=== PATIENT | female | born 1950 | race Caucasian/White ===

== ENCOUNTER 2019-08-14 09:37 | Inpatient (IN) ==
[2019-08-14] MEDS ORDERED: NS 1000 ML 1,000 ML ONE (13:02)
[2019-08-14] MEDS: NS 1000 ML 1,000 ML IV SCH (13:22)
[2019-08-14 13:23] LABS: BASOPHILS # (AUTO) 0.1 X10^3/uL (0.0-0.1); BASOPHILS % (AUTO) 1.1 % (0.2-1.0); EOSINOPHILS # (AUTO) 0.2 x10^3/uL (0.0-0.2); EOSINOPHILS % (AUTO) 2.5 % (0.9-2.9); HEMOGLOBIN 11.9 g/dL (12.0-16.0); LYMPHOCYTES # (AUTO) 1.3 X10^3/uL (1.3-2.9); LYMPHOCYTES % (AUTO) 20.4 % (21.0-51.0); MEAN CORPUSCULAR HEMOGLOBIN 29.8 pg (27.0-34.0); MEAN CORPUSCULAR VOLUME 90.2 fL (80.0-100.0); MEAN PLATELET VOLUME 8.2 fL (7.4-11.0); MONOCYTES # (AUTO) 0.9 x10^3/uL (0.3-0.8); PLATELET COUNT 250 X10^3/uL (150.0-450.0); RED BLOOD COUNT 3.99 X10^6/uL (3.5-5.4); RED CELL DISTRIBUTION WIDTH 13.2 % (11.6-16.5); WHITE BLOOD COUNT 6.4 X10^3/uL (3.6-10.0)
[2019-08-14 13:34] LABS: ALANINE AMINOTRANSFERASE 39 Units/L (12-78); ALBUMIN 3.4 g/dL (3.4-5.0); ALKALINE PHOSPHATASE 51 Units/L (46-116); ASPARTATE AMINO TRANSFERASE 23 Units/L (15-37); BLOOD UREA NITROGEN 7 mg/dL (7-18); CHLORIDE 93 mmol/L (98-107); COR NA(FOR HYPERGLY) 135 mmol/L (136-145); CREATININE 0.48 mg/dL (0.55-1.02); SODIUM 134 mmol/L (136-145); TOTAL PROTEIN 6.9 g/dL (6.4-8.2); eGFR NON BLACK RACES > 60 (>60)
[2019-08-14 13:38] LABS: CARBON DIOXIDE 44.9 mmol/L (21-32)
--- NOTE | 2019-08-14 13:40 | RAD ---
HISTORYACUTE SOBSTUDYCHEST, 1 VIEWCOMPARISONNoneFINDINGSThe trachea is midline. The cardiac silhouette is unremarkable. Calcification of the aortic arch.Lungs are hyperinflated likely due to COPD. No evidence of pneumonia no pneumothorax or pleural effusion is seen. Lung apices are excluded.No acute bony abnormality is seen.IMPRESSIONProbable COPD changes.Electronically signed by: Aric Archibald (Aug 14, 2019 13:38:44)
[2019-08-14 13:43] VITALS: BMI 18.5
[2019-08-14 14:08] LABS: BILIRUBIN,URINE NEGATIVE (NEGATIVE); BLOOD/HEMOGLOBIN,URINE NEGATIVE (NEGATIVE); GLUCOSE, URINE NEGATIVE (NEGATIVE); KETONES,URINE NEGATIVE (NEGATIVE); LEUKOCYTE ESTERASE ,URINE NEGATIVE (NEGATIVE); NITRITES,URINE NEGATIVE (NEGATIVE); PROTEIN,URINE NEGATIVE (NEGATIVE); UROBILINOGEN,URINE NORMAL (NORMAL)
[2019-08-14 14:13] LABS: APPEARANCE,URINE CLEAR (CLEAR); COLOR,URINE YELLOW (YELLOW)
[2019-08-14 20:46] LABS: ABG BASE EXCESS 16.3 mmol/L (-2.0-2.0)
[2019-08-14 20:54] LABS: ABG ALLEN TEST P; ABG HCO3 45.8 mmol/L (22-26)
[2019-08-14] MEDS ORDERED: PROVENTIL NEB TX 0.083% 2.5MG/ 3ML NEB SCH (21:00)
[2019-08-14] MEDS: PULMICORT NEB TX 0.5 MG NEB SCH (21:10)
[2019-08-14] MEDS ORDERED: ATIVAN TAB 0.5 MG ONE (21:22)
[2019-08-14] MEDS: ATIVAN TAB 0.5 MG PO PRN (21:28)
[2019-08-15] MEDS: NS 1000 ML 1,000 ML IV SCH ×2 (03:22→15:21)
[2019-08-15 06:57] LABS: BASOPHILS # (AUTO) 0.1 X10^3/uL (0.0-0.1); EOSINOPHILS # (AUTO) 0.1 x10^3/uL (0.0-0.2); EOSINOPHILS % (AUTO) 2.3 % (0.9-2.9); HEMOGLOBIN 10.1 g/dL (12.0-16.0); LYMPHOCYTES # (AUTO) 1.4 X10^3/uL (1.3-2.9); MEAN CORPUSCULAR HEMOGLOBIN 29.6 pg (27.0-34.0); MEAN CORPUSCULAR HGB CONC 32.5 g/dL (33.0-35.0); MEAN PLATELET VOLUME 8.7 fL (7.4-11.0); MONOCYTES # (AUTO) 0.7 x10^3/uL (0.3-0.8); MONOCYTES % (AUTO) 13.6 % (0.0-13.0); NEUTROPHILS # (AUTO) 2.8 x10^3/uL (2.2-4.8); NEUTROPHILS % (AUTO) 55.1 % (42.0-75.0); PLATELET COUNT 182 X10^3/uL (150.0-450.0); RED BLOOD COUNT 3.41 X10^6/uL (3.5-5.4); RED CELL DISTRIBUTION WIDTH 13.4 % (11.6-16.5); WHITE BLOOD COUNT 5.1 X10^3/uL (3.6-10.0)
[2019-08-15 07:19] LABS: ALANINE AMINOTRANSFERASE 33 Units/L (12-78); ALBUMIN 2.8 g/dL (3.4-5.0); ALKALINE PHOSPHATASE 38 Units/L (46-116); ASPARTATE AMINO TRANSFERASE 16 Units/L (15-37); BLOOD UREA NITROGEN 3 mg/dL (7-18); CALCIUM 7.9 mg/dL (8.5-10.1); CHLORIDE 100 mmol/L (98-107); COR CA(FOR HYPOALB) 8.9 mg/dL (8.5-10.1); CREATININE 0.38 mg/dL (0.55-1.02); SODIUM 140 mmol/L (136-145); TOTAL PROTEIN 5.6 g/dL (6.4-8.2); eGFR NON BLACK RACES > 60 (>60)
[2019-08-15 07:27] LABS: CARBON DIOXIDE 40.7 mmol/L (21-32)
[2019-08-15] MEDS ORDERED: ATIVAN TAB 0.5 MG PO PRN (08:36)
[2019-08-15] MEDS ORDERED: TYLENOL 500 MG TAB EXTRA STRENGTH PO PRN (08:36)
[2019-08-15 09:21] LABS: ABG BASE EXCESS 18.3 mmol/L (-2.0-2.0)
[2019-08-15 09:22] LABS: ABG ALLEN TEST POS
[2019-08-15] MEDS: PULMICORT NEB TX 0.5 MG NEB SCH ×2 (09:26→20:02)
[2019-08-15] MEDS: TAB-A-VITE PO SCH ×2 (10:03→10:06)
[2019-08-15] MEDS: SOLU-Medrol 40 MG VIAL IVP SCH ×3 (10:03→21:30)
[2019-08-15] MEDS: LOPRESSOR TAB 25 MG PO SCH ×2 (10:03→20:47)
[2019-08-15] MEDS: OSCAL+D or CALTRATE+D PO SCH (10:03)
[2019-08-15] MEDS: LOVENOX INJ 40 MG SYR SC SCH (10:05)
[2019-08-15] MEDS: FORTAZ or TAZICEF VIAL INJ 1 G in NS 100 ML IV + SPIKE MINIBAG* 100 ML IV SCH ×3 (10:06→21:35)
--- NOTE | 2019-08-15 10:32 | DR.H&P ---
H&P - History & Physical for Day of: H&P Date: 08/14/19 - Chief Complaint Chief Complaint: WEAKNESS, AMS, SOB, COUGH - History of Present Illness History of Present Illness: IS A 69 YEAR OLD PATIENT OF OURS WHO PRESENTED TO THE ER WITH COMPLAINTS OF DEHYDRATION, WEAKNESS, AMS, SHORTNESS OF BREATH, AND COUGH. SYMPTOMS STARTED APPROXIMATELY A WEEK AGO. SHE HAS BEEN TAKING LEVAQUIN 500MG PO DAILY AND RESPIRATORY TREATMENTS AT HOME WITHOUT IMPROVEMENT IN SYMPTOMS. SHE DOES HAVE A PMH OF COPD AND EMPHYSEMA. ON ARRIVAL, VITALS WERE 98.5-86-20-99%-128/58. LABS WERE OBTAINED. ABNORMAL LAB VALUES INCLUDE THE FOLLOWING: HGB 11.9, SODIUM 134, CHLORIDE 93, CARBON DIOXIDE 44.9, CREATININE 0.48, GLUCOSE 127, TOTAL BILI 0.10. A URINALYSIS REVEALED: PH 7.350, PC02 83.0, P02 113.0, HC03 45.8, 02 SATURATION 98.0, BASE EXCESS 16.3. URINALY SIS IS UNREMARKABLE. A CHEST XRAY WAS OBTAINED AND REVEALED: PROBABLE COPD CHANGES. SHE WAS STARTED ON NORMAL SALINE AT 80 ML/HR, IV FORTAZ, IV LEVAQUIN, SOLU-MEDROL 80MG IV Q8H, LOVENOX 40MG SC DAILY, AND RESPIRATORY TREATMENTS. OTHERWISE, WE PLAN TO FOLLOW UP WITH AM LABS AND CONTINUE TO MONITOR. - Past Medical History Past Medical History: COPD, Dyslipidemia, Hypertension - Past Surgical History Surgical History: Appendectomy, Tonsillectomy - Family History Family Medical History: PA, Hypertension - Social History Does patient currently use any type of tobacco product: No (quit 3 yrs. ago) Have you used tobacco products in the last 12 months: No Type of Tobacco Use: None How many years tobacco product used: 30 Alcohol Use: None Drug Use: None - Medications Home Medications: aspirin Allergy (Verified 04/27/18 11:47) sulfamethoxazole [From Bactrim] Allergy (Verified 04/27/18 11:47) trimethoprim [From Bactrim] Allergy (Verified 04/27/18 11:47) - Review of Systems Constitutional: Weakness Eyes: No Symptoms Reported ENT: No Symptoms Reported Respiratory: See HPI, Cough, Shortness of Breath, SOB with Excertion, Wheezing Cardiovascular: No Symptoms Reported Gastrointestinal: No Symptoms Reported Genitourinary: No Symptoms Reported Musculoskeletal: No Symptoms Reported Neurological: Weakness - Physical Exam Vital Signs: Temperature 98.1 F Pulse Rate [Right Brachial] 93 Pulse Rate 106 Respiratory Rate 20 Blood Pressure [Right Arm] 149/66 O2 Sat by Pulse Oximetry 98 Oriented: Normal Eyes: Normal Ear: Normal Nose: Normal Throat: Normal Respiratory: Wheezes Throughout Cardiovascular: Normal. negative: S3, S4, Murmur : Normal Auscultation: Bowel Sounds: Normal Palpation: Normal Tenderness: Diffuse Skin: Normal Musculoskeletal: Normal Psychiatric: Normal Mood Description: Calm Affect: Normal Speech Pattern: Clear - Assessment/Plan (1) COPD exacerbation Status: Acute Plan: ADMIT, IV FLUIDS, IV LEVAQUIN, IV FORTAZ, SOLU-MEDROL, RESPIRATORY TREATMENTS, CONTINUE TO MONITOR. (2) Acute bronchitis Qualifiers: Bronchitis organism: unspecified organism Qualified Code(s): J20.9 - Acute bronchitis, unspecified Status: Acute (3) Altered mental status Qualifiers: Altered mental status type: transient alteration of awareness Qualified Code(s): R40.4 - Transient alteration of awareness Status: Acute - Allergies Allergies/Adverse Reactions: Allergies Allergy/AdvReac Type Severity Reaction Status Date / Time aspirin Allergy Verified 04/27/18 11:47 sulfamethoxazole Allergy Verified 04/27/18 11:47 [From Bactrim] trimethoprim [From Bactrim] Allergy Verified 04/27/18 11:47
[2019-08-15] MEDS: PROVENTIL NEB TX 0.083% 2.5MG/ 3ML NEB PRN ×2 (11:07→20:02)
[2019-08-15] MEDS: LEVAQUIN PREMIX IV 750 MG 750 MG/150 ML BAG IV SCH (11:23)
[2019-08-15] MEDS ORDERED: TUMS PO PRN (14:00)
[2019-08-15] MEDS: ATIVAN TAB 0.5 MG PO PRN (14:11)
[2019-08-15] MEDS: NORVASC TAB 5 MG PO SCH (20:47)
[2019-08-15] MEDS: ZOCOR TAB 20 MG PO SCH (20:47)
[2019-08-16] MEDS: ATIVAN TAB 0.5 MG PO PRN ×2 (01:30→14:22)
[2019-08-16] MEDS: NS 1000 ML 1,000 ML IV SCH ×2 (06:08→19:13)
[2019-08-16] MEDS: FORTAZ or TAZICEF VIAL INJ 1 G in NS 100 ML IV + SPIKE MINIBAG* 100 ML IV SCH ×3 (06:08→21:38)
[2019-08-16] MEDS: SOLU-Medrol 40 MG VIAL IVP SCH ×3 (06:09→21:38)
[2019-08-16 06:26] LABS: BASOPHILS % (AUTO) 0.1 % (0.2-1.0); HEMATOCRIT 34.2 % (36.0-47.0); HEMOGLOBIN 11.1 g/dL (12.0-16.0); LYMPHOCYTES # (AUTO) 0.5 X10^3/uL (1.3-2.9); LYMPHOCYTES % (AUTO) 10.5 % (21.0-51.0); MEAN CORPUSCULAR HEMOGLOBIN 29.4 pg (27.0-34.0); MEAN CORPUSCULAR HGB CONC 32.4 g/dL (33.0-35.0); MEAN CORPUSCULAR VOLUME 90.5 fL (80.0-100.0); MEAN PLATELET VOLUME 8.4 fL (7.4-11.0); MONOCYTES # (AUTO) 0.3 x10^3/uL (0.3-0.8); MONOCYTES % (AUTO) 5.6 % (0.0-13.0); NEUTROPHILS # (AUTO) 4.2 x10^3/uL (2.2-4.8); NEUTROPHILS % (AUTO) 83.8 % (42.0-75.0); PLATELET COUNT 247 X10^3/uL (150.0-450.0); RED BLOOD COUNT 3.77 X10^6/uL (3.5-5.4); RED CELL DISTRIBUTION WIDTH 13.4 % (11.6-16.5)
[2019-08-16 06:39] LABS: ALANINE AMINOTRANSFERASE 32 Units/L (12-78); ALKALINE PHOSPHATASE 42 Units/L (46-116); ASPARTATE AMINO TRANSFERASE 20 Units/L (15-37); BLOOD UREA NITROGEN 7 mg/dL (7-18); CALCIUM 8.6 mg/dL (8.5-10.1); CHLORIDE 99 mmol/L (98-107); COR CA(FOR HYPOALB) 9.4 mg/dL (8.5-10.1); COR NA(FOR HYPERGLY) 138 mmol/L (136-145); CREATININE 0.41 mg/dL (0.55-1.02); SODIUM 137 mmol/L (136-145); TOTAL PROTEIN 6.3 g/dL (6.4-8.2); eGFR NON BLACK RACES > 60 (>60)
[2019-08-16 06:48] LABS: CARBON DIOXIDE 40.3 mmol/L (21-32)
--- NOTE | 2019-08-16 07:06 | RAD ---
HISTORYSOB, COPDSTUDYAP [id number]/2020FINDINGSContinued normal heart size with symmetric pulmonary hyperexpansion and no evidence for acute infiltrate, edema, pleural fluid or pneumothorax.IMPRESSIONNo interval russo ge or developing acute abnormality since 08/14/2019.Electronically signed by: CHELSEY JONES (Aug 16, 2019 07:05:39)
[2019-08-16] MEDS: PULMICORT NEB TX 0.5 MG NEB SCH ×2 (08:21→20:08)
[2019-08-16] MEDS: PROVENTIL NEB TX 0.083% 2.5MG/ 3ML NEB PRN ×3 (08:21→20:08)
[2019-08-16] MEDS: LEVAQUIN PREMIX IV 750 MG 750 MG/150 ML BAG IV SCH (09:15)
[2019-08-16] MEDS: LOPRESSOR TAB 25 MG PO SCH ×2 (09:15→21:36)
[2019-08-16] MEDS: LOVENOX INJ 40 MG SYR SC SCH (09:16)
[2019-08-16] MEDS: OSCAL+D or CALTRATE+D PO SCH (09:16)
[2019-08-16] MEDS: TAB-A-VITE PO SCH (09:16)
[2019-08-16] MEDS: ZOCOR TAB 20 MG PO SCH (21:37)
[2019-08-16] MEDS: NORVASC TAB 5 MG PO SCH (21:37)
[2019-08-17] MEDS: FORTAZ or TAZICEF VIAL INJ 1 G in NS 100 ML IV + SPIKE MINIBAG* 100 ML IV SCH ×3 (05:50→21:00)
[2019-08-17] MEDS: SOLU-Medrol 40 MG VIAL IVP SCH ×3 (05:51→21:00)
[2019-08-17 06:09] LABS: BASOPHILS % (AUTO) 0.1 % (0.2-1.0); HEMATOCRIT 35.1 % (36.0-47.0); HEMOGLOBIN 11.5 g/dL (12.0-16.0); LYMPHOCYTES # (AUTO) 0.6 X10^3/uL (1.3-2.9); LYMPHOCYTES % (AUTO) 6.3 % (21.0-51.0); MEAN CORPUSCULAR HGB CONC 32.8 g/dL (33.0-35.0); MEAN CORPUSCULAR VOLUME 91.4 fL (80.0-100.0); MEAN PLATELET VOLUME 9.1 fL (7.4-11.0); MONOCYTES # (AUTO) 0.5 x10^3/uL (0.3-0.8); MONOCYTES % (AUTO) 4.6 % (0.0-13.0); PLATELET COUNT 267 X10^3/uL (150.0-450.0); RED BLOOD COUNT 3.84 X10^6/uL (3.5-5.4); RED CELL DISTRIBUTION WIDTH 13.9 % (11.6-16.5); WHITE BLOOD COUNT 10.1 X10^3/uL (3.6-10.0)
[2019-08-17 06:29] LABS: ALANINE AMINOTRANSFERASE 32 Units/L (12-78); ALBUMIN 3.3 g/dL (3.4-5.0); ALKALINE PHOSPHATASE 44 Units/L (46-116); ASPARTATE AMINO TRANSFERASE 18 Units/L (15-37); BLOOD UREA NITROGEN 6 mg/dL (7-18); CALCIUM 8.7 mg/dL (8.5-10.1); CARBON DIOXIDE 39.4 mmol/L (21-32); CHLORIDE 98 mmol/L (98-107); COR CA(FOR HYPOALB) 9.3 mg/dL (8.5-10.1); COR NA(FOR HYPERGLY) 139 mmol/L (136-145); CREATININE 0.42 mg/dL (0.55-1.02); SODIUM 138 mmol/L (136-145); TOTAL PROTEIN 6.6 g/dL (6.4-8.2); eGFR NON BLACK RACES > 60 (>60)
--- NOTE | 2019-08-17 08:07 | RAD ---
HISTORYshort of breathSTUDYCHEST, 1 VIEWCOMPARISONFebruary 2019 and April 27, 2018FINDINGSAortic atherosclerosis is noted. There is a background of emphysema/COPD. The patient is slightly rotated, but there appears to be a slightly convex contour of the AP window for which an underlying mass or lymphadenopathy is not entirely excluded. CT chest with contrast is recommended if the patient's renal function allows. The cardiac silhouette is unremarkable . The lungs are clear without focal mass or consolidation. There is no effusion or pneumothorax. Biapical pleural thickening is noted. The bony thorax is unremarkable.IMPRESSIONNo acute cardiopulmonary disease. Background of emphysema/COPD with equivocal convex contour of the left AP window. CT chest with contrast is recommended when clinically feasible and if the patient's renal function allows.Electronically signed by: NUSRAT GARCIA (Aug 17, 2019 08:06:47)
[2019-08-17] MEDS: PROVENTIL NEB TX 0.083% 2.5MG/ 3ML NEB PRN ×3 (08:38→21:14)
[2019-08-17] MEDS: PULMICORT NEB TX 0.5 MG NEB SCH ×2 (08:38→21:14)
[2019-08-17] MEDS: LEVAQUIN PREMIX IV 750 MG 750 MG/150 ML BAG IV SCH (09:27)
[2019-08-17] MEDS: TAB-A-VITE PO SCH (09:27)
[2019-08-17] MEDS: ATIVAN TAB 0.5 MG PO PRN ×2 (09:27→20:38)
[2019-08-17] MEDS: OSCAL+D or CALTRATE+D PO SCH (09:27)
[2019-08-17] MEDS: LOPRESSOR TAB 25 MG PO SCH ×2 (09:27→20:37)
--- NOTE | 2019-08-17 11:32 | PCM.PROG ---
Progress Note Progress Note for Day of Date of Exam: 08/17/19 Subjective Subjective: Pt is a 69 yo f pmhx COPD admitted for COPD exacerbation, dehydration, weakness. She is sitting up in bed, states she has been coughing up white sputum, no other concerns. She is on Levaquin, Fortaz, Solumedrol. CXR today showed No acute cardiopulmonary disease. Background of emphysema/COPD with equivocal convex contour of the left AP window. CT chest with contrast is recommended when clinically feasible and if the patient's renal function allows. Will order CT today, IS, and Mucinex. C ontinue to monitor and follow labs in morning. Past Medical Family Social History Past Med/Fam/Surg Hx: No changes since H&P Allergies: Allergies aspirin Allergy (Verified 04/27/18 11:47) sulfamethoxazole [From Bactrim] Allergy (Verified 04/27/18 11:47) trimethoprim [From Bactrim] Allergy (Verified 04/27/18 11:47) Review of Systems ROS: No change since H&P Vital Signs and I&O's Vital Signs: Temperature 97.8 F Pulse Rate [Right Brachial] 85 Pulse Rate 98 Respiratory Rate 22 Blood Pressure [Right Arm] 127/60 O2 Sat by Pulse Oximetry 96 Intake and Output: Intake & Output 08/14/19 08/15/19 08/16/19 08/17/19 23:59 23:59 23:59 23:59 Intake Total 2280 / 2280 1540 / 1540 3110 / 3110 810 / 810 Output Total 1200 / 1200 Balance 2280 / 2280 340 / 340 3110 / 3110 810 / 810 Physical Exam Oriented: Normal Eyes: Normal Ear: Normal Nose: Normal Throat: Normal Respiratory: Diminished and Wheezes Cardiovascular: Normal; negative S3, S4 and Murmur : Normal Auscultation: Bowel Sounds: Normal Tenderness: Diffuse Skin: Normal Musculoskeletal: Normal Psychiatric: Normal Mood Description: Calm Affect: Normal Speech Pattern: Clear and Appropriate Laboratory and Diagnostics Result Diagrams: 08/17/19 05:05 08/17/19 05:05 Labs: 08/15/19 23:04 Sputum - Expectorated Sputum Sputum Culture - Preliminary 08/15/19 23:04 Sputum - Expectorated Sputum - Final 08/14/19 13:00 Urine,Clean Catch Urine Culture - Final Laboratory WBC 10.1 X10^3/uL (3.6-10.0) H 08/17/19 05:05 RBC 3.84 X10^6/uL (3.5-5.4) 08/17/19 05:05 Hgb 11.5 g/dL (12.0-16.0) L 08/17/19 05:05 Hct 35.1 % (36.0-47.0) L 08/17/19 05:05 MCV 91.4 fL (80.0-100.0) 08/17/19 05:05 MCH 30.0 pg (27.0-34.0) 08/17/19 05:05 MCHC 32.8 g/dL (33.0-35.0) L 08/17/19 05:05 RDW 13.9 % (11.6-16.5) 08/17/19 05:05 Plt Count 267 X10^3/uL (150.0-450.0) 08/17/19 05:05 MPV 9.1 fL (7.4-11.0) 08/17/19 05:05 Neut % (Auto) 89.0 % (42.0-75.0) H 08/17/19 05:05 Lymph % (Auto) 6.3 % (21.0-51.0) L 08/17/19 05:05 [place] % (Auto) 4.6 % (0.0-13.0) 08/17/19 05:05 Eos % (Auto) 0.0 % (0.9-2.9) L 08/17/19 05:05 Baso % (Auto) 0.1 % (0.2-1.0) L 08/17/19 05:05 Neut # (Auto) 9.0 x10^3/uL (2.2-4.8) H 08/17/19 05:05 Lymph # (Auto) 0.6 X10^3/uL (1.3-2.9) L 08/17/19 05:05 [place] # (Auto) 0.5 x10^3/uL (0.3-0.8) 08/17/19 05:05 Eos # (Auto) 0.0 x10^3/uL (0.0-0.2) 08/17/19 05:05 Baso # (Auto) 0.0 X10^3/uL (0.0-0.1) 08/17/19 05:05 Absolute Nucleated RBC 0.0 /100WBC 08/17/19 05:05 Sample Site Rr 08/15/19 09:16 ABG pH 7.360 (7.35-7.45) 08/15/19 09:16 ABG pCO2 85.0 mmHg (35.0-45.0) H* 08/15/19 09:16 ABG pO2 97.0 mmHg (80.0-100.0) 08/15/19 09:16 ABG HCO3 48.0 mmol/L (22-26) H* 08/15/19 09:16 ABG O2 Saturation 97.0 % (90-100) 08/15/19 09:16 ABG Base Excess 18.3 mmol/L (-2.0-2.0) H 08/15/19 09:16 Mayo Test Pos 08/15/19 09:16 A-a Gradient -4.0 mmHg 08/15/19 09:16 FiO2 28.0 08/15/19 09:16 Blood Gas Comments Miles well cb 08/15/19 09:16 Sodium 138 mmol/L (136-145) 08/17/19 05:05 Corrected Sodium 139 mmol/L (136-145) 08/17/19 05:05 Potassium 4.0 mmol/L (3.5-5.1) 08/17/19 05:05 Chloride 98 mmol/L (98-107) 08/17/19 05:05 Carbon Dioxide 39.4 mmol/L (21-32) H 08/17/19 05:05 BUN 6 mg/dL (7-18) L 08/17/19 05:05 Creatinine 0.42 mg/dL (0.55-1.02) L 08/17/19 05:05 Est GFR (MDRD) Af Amer > 60 (>60) 08/17/19 05:05 Est GFR (MDRD) Non-Af > 60 (>60) 08/17/19 05:05 Glucose 160 mg/dL (65-99) H 08/17/19 05:05 Calcium 8.7 mg/dL (8.5-10.1) 08/17/19 05:05 Corrected Calcium 9.3 mg/dL (8.5-10.1) 08/17/19 05:05 Total Bilirubin 0.10 mg/dL (0.2-1.0) L 08/17/19 05:05 AST 18 Units/L (15-37) 08/17/19 05:05 ALT 32 Units/L (12-78) 08/17/19 05:05 Alkaline Phosphatase 44 Units/L (46-116) L 08/17/19 05:05 Total Protein 6.6 g/dL (6.4-8.2) 08/17/19 05:05 Albumin 3.3 g/dL (3.4-5.0) L 08/17/19 05:05 Globulin 3.3 g/dL (2.5-4.5) 08/17/19 05:05 Albumin/Globulin Ratio 1.0 Ratio (1.1-2.1) L 08/17/19 05:05 Specimen Type Clean catch urine 08/14/19 13:00 Urine Color Yellow (YELLOW) 08/14/19 13:00 Urine Appearance Clear (CLEAR) 08/14/19 13:00 Urine pH 7.0 (5.0 - 8.0) 08/14/19 13:00 Ur Specific [place] 1.010 (1.000-1.030) 08/14/19 13:00 Urine Protein Negative (NEGATIVE) 08/14/19 13:00 Urine Glucose (UA) Negative (NEGATIVE) 08/14/19 13:00 Urine Ketones Negative (NEGATIVE) 08/14/19 13:00 Urine Occult Blood Negative (NEGATIVE) 08/14/19 13:00 Urine Nitrite Negative (NEGATIVE) 08/14/19 13:00 Urine Bilirubin Negative (NEGATIVE) 08/14/19 13:00 Urine Urobilinogen Normal (NORMAL) 08/14/19 13:00 Ur Leukocyte Esterase Negative (NEGATIVE) 08/14/19 13:00 Plan (1) COPD exacerbation: Status: Acute Plan: IV FLUIDS, IV LEVAQUIN, IV FORTAZ, SOLU-MEDROL, RESPIRATORY TREATMENTS, CONTINUE TO MONITOR. (2) Acute bronchitis: Status: Acute Qualifiers: Bronchitis organism: unspecified organism Qualified Code(s): J20.9 - Acute bronchitis, unspecified (3) Altered mental status: Status: Acute Qualifiers: Altered mental status type: transient alteration of awareness Qualified Code(s): R40.4 - Transient alteration of awareness
[2019-08-17] MEDS: MUCINEX EXPECTORANT PO SCH ×2 (14:35→20:38)
[2019-08-17] MEDS: LOVENOX INJ 40 MG SYR SC SCH (14:36)
[2019-08-17] MEDS: NS 1000 ML 1,000 ML IV SCH ×2 (14:42→19:54)
--- NOTE | 2019-08-17 19:40 | CT ---
CHEST WITH CONIndication: Rule out lymphadenopathy or underlying massTechnique: Helical CT images of the chest were obtained with IV contrast. Reformatted images in the coronal and sagittal planes were also generated for review.Comparison: NoneFindings: Heart is normal in size without pericardial effusion. Mild coronary atherosclerotic disease noted. The thoracic aorta and proximal great vessels are mildly calcified without aneurysm. Although not optimized for detection of PTE, no central or large segmental pulmonary arterial filling defects are identified. Central airways are patent. There is no mediastinal or hilar lymphadenopathy.Evaluation of the lungs demonstrate advanced centrilobular emphysema. No focal consolidation or suspicious pulmonary nodule/mass is identified. No pleural effusion or pneumothorax.Limited images through the upper abdomen demonstrates no acute abnormality. No adrenal lesions are seen. No acute osseous abnormality.Impression:Advanced emphysema.Otherwise, no acute cardiopulmonary abnormality, suspicious pulmonary nodule/mass or intrathoracic lymphadenopathy.Recommend annual screening with LDCT.Electronically signed by: YANE NGUYEN (Aug 17, 2019 19:39:26)
[2019-08-17] MEDS: ZOCOR TAB 20 MG PO SCH (20:38)
[2019-08-17] MEDS: NORVASC TAB 5 MG PO SCH (20:39)
[2019-08-18] MEDS: FORTAZ or TAZICEF VIAL INJ 1 G in NS 100 ML IV + SPIKE MINIBAG* 100 ML IV SCH ×4 (05:20→21:10)
[2019-08-18] MEDS: NS 1000 ML 1,000 ML IV SCH ×3 (05:20→21:14)
[2019-08-18] MEDS: SOLU-Medrol 40 MG VIAL IVP SCH (05:20)
[2019-08-18 06:15] LABS: BASOPHILS % (AUTO) 0 % (0.2-1.0); HEMATOCRIT 34.5 % (36.0-47.0); HEMOGLOBIN 11.2 g/dL (12.0-16.0); LYMPHOCYTES # (AUTO) 0.4 X10^3/uL (1.3-2.9); LYMPHOCYTES % (AUTO) 5.5 % (21.0-51.0); MEAN CORPUSCULAR HEMOGLOBIN 29.5 pg (27.0-34.0); MEAN CORPUSCULAR HGB CONC 32.4 g/dL (33.0-35.0); MEAN CORPUSCULAR VOLUME 91.1 fL (80.0-100.0); MEAN PLATELET VOLUME 8.6 fL (7.4-11.0); MONOCYTES # (AUTO) 0.3 x10^3/uL (0.3-0.8); MONOCYTES % (AUTO) 4.1 % (0.0-13.0); NEUTROPHILS # (AUTO) 6.9 x10^3/uL (2.2-4.8); NEUTROPHILS % (AUTO) 90.4 % (42.0-75.0); PLATELET COUNT 246 X10^3/uL (150.0-450.0); RED BLOOD COUNT 3.79 X10^6/uL (3.5-5.4); RED CELL DISTRIBUTION WIDTH 13.9 % (11.6-16.5); WHITE BLOOD COUNT 7.6 X10^3/uL (3.6-10.0)
[2019-08-18 06:28] LABS: ALANINE AMINOTRANSFERASE 36 Units/L (12-78); ALBUMIN 2.9 g/dL (3.4-5.0); ALKALINE PHOSPHATASE 39 Units/L (46-116); ASPARTATE AMINO TRANSFERASE 19 Units/L (15-37); BLOOD UREA NITROGEN 7 mg/dL (7-18); CALCIUM 8.7 mg/dL (8.5-10.1); CHLORIDE 99 mmol/L (98-107); COR CA(FOR HYPOALB) 9.6 mg/dL (8.5-10.1); COR NA(FOR HYPERGLY) 142 mmol/L (136-145); CREATININE 0.43 mg/dL (0.55-1.02); SODIUM 141 mmol/L (136-145); TOTAL PROTEIN 5.9 g/dL (6.4-8.2); eGFR NON BLACK RACES > 60 (>60)
[2019-08-18 06:59] LABS: CARBON DIOXIDE 44.2 mmol/L (21-32)
--- NOTE | 2019-08-18 07:01 | RAD ---
HISTORYsobSTUDYUpright portable AP chestCOMPARISONYesterday August 17, 2019FINDINGSThe lungs remain hyperinflated and grossly clear. The heart and mediastinum are unremarkable. There is no edema or effusion or bony abnormality demonstrated.IMPRESSIONUnchanged COPDElectronically signed by: DANGELO TAYLOR (Aug 18, 2019 07:00:35)
[2019-08-18 07:16] LABS: PLATELET MORPHOLOGY COMMENT NORMAL (NORMAL)
[2019-08-18 07:33] LABS: ABG BASE EXCESS 20.8 mmol/L (-2.0-2.0)
[2019-08-18 07:35] LABS: ABG HCO3 51.3 mmol/L (22-26)
[2019-08-18] MEDS: TAB-A-VITE PO SCH (08:40)
[2019-08-18] MEDS: LEVAQUIN PREMIX IV 750 MG 750 MG/150 ML BAG IV SCH (08:40)
[2019-08-18] MEDS: MUCINEX EXPECTORANT PO SCH ×2 (08:40→21:10)
[2019-08-18] MEDS: LOPRESSOR TAB 25 MG PO SCH ×2 (08:40→21:11)
[2019-08-18] MEDS: ATIVAN TAB 0.5 MG PO PRN ×2 (08:40→21:10)
[2019-08-18] MEDS: LOVENOX INJ 40 MG SYR SC SCH (08:41)
[2019-08-18] MEDS: OSCAL+D or CALTRATE+D PO SCH (08:41)
[2019-08-18] MEDS: PULMICORT NEB TX 0.5 MG NEB SCH ×2 (08:59→20:35)
[2019-08-18] MEDS: PROVENTIL NEB TX 0.083% 2.5MG/ 3ML NEB PRN ×3 (08:59→20:35)
[2019-08-18] MEDS: THEO-DUR TAB 200 MG PO SCH ×2 (12:10→21:10)
--- NOTE | 2019-08-18 18:45 | PCM.PROG ---
Progress Note - Progress Note for Day of Date of Exam: 08/16/19 - Subjective Subjective: WAS ADMITTED FOR COPD EXACERBATION, ACUTE BRONCHITIS, AND AMS. TODAY, SHE IS ALERT AND ORIENTED, LYING IN BED ON MORNING ROUNDS. SHE CONTINUES WITH COUGH AND SHORTNESS OF BREATH TODAY. ON EXAMINATION, HEART IS REGULAR IN RATE AND RHYTHM. BILATERAL LUNGS ARE NOTED WITH SCATTERED WHEEZING THROUGHOUT. ABDOMEN IS ROUND, SOFT, AND NON-TENDER WITH NORMAL BOWEL SOUNDS IN ALL QUADRANTS. HER VITALS THIS MORNING ARE: 98.3-93-22-99%-143/63. LABS WERE OBTAINED. ABNORMAL LAB VALUES INCLUDE THE FOLLOWING: HGB 11.1, HCT 34.2, CARBON DIOXIDE 40.3, CREATININE 0.41, GLUCOSE 144, ALK PHOS 42, TOTAL PROTEIN 6.3, ALBUMIN 3.0. URINE AND SPUTUM CULTURES ARE PENDING. A CHEST XRAY WAS OBTAINED AND REVEALED: No interval change or developing acute abnormality since 08/14/2019. SHE IS CURRENTLY RECEIVING: NORMAL SALINE AT 80 ML/HR, IV FORTAZ, IV LEVAQUIN, SOLU-MEDROL 80MG IV Q8H, LOVENOX 40MG SC DAILY, AND RESPIRATORY TREATMENTS. WE WILL CONTINUE WITH CURRENT PLAN OF CARE TODAY. OTHERWISE, WE WILL FOLLOW UP WITH AM LABS AND CONTINUE TO MONITOR. - Past Medical Family Social History Past Med/Fam/Surg Hx: No changes since H&P Allergies: Allergies aspirin Allergy (Verified 04/27/18 11:47) sulfamethoxazole [From Bactrim] Allergy (Verified 04/27/18 11:47) trimethoprim [From Bactrim] Allergy (Verified 04/27/18 11:47) - Review of Systems ROS: No change since H&P - Vital Signs and I&O's Vital Signs: Temperature 97.9 F Pulse Rate [Right Brachial] 91 Pulse Rate 117 Respiratory Rate 20 Blood Pressure [Right Arm] 157/75 O2 Sat by Pulse Oximetry 98 Intake and Output: Intake & Output 08/16/19 08/17/19 08/18/19 08/19/19 11:59 11:59 11:59 11:59 Intake Total 2880 / 2880 2280 / 2280 1590 / 1590 1240 / 1240 Output Total 400 / 400 400 / 400 Balance 2480 / 2480 2280 / 2280 1190 / 1190 1240 / 1240 - Physical Exam Oriented: Normal Eyes: Normal Ear: Normal Nose: Normal Throat: Normal Respiratory: Diminished, Wheezes Cardiovascular: Normal. negative: S3, S4, Murmur : Normal Auscultation: Bowel Sounds: Normal Palpation: Normal Tenderness: Diffuse Skin: Normal Musculoskeletal: Normal Psychiatric: Normal Mood Description: Calm Affect: Normal Speech Pattern: Clear, Appropriate - Laboratory and Diagnostics Result Diagrams: 08/18/19 04:22 08/18/19 04:22 Labs: 08/15/19 23:04 Sputum - Expectorated Sputum Sputum Culture - Final 08/15/19 23:04 Sputum - Expectorated Sputum - Final 08/14/19 13:00 Urine,Clean Catch Urine Culture - Final Laboratory WBC 7.6 X10^3/uL (3.6-10.0) 08/18/19 04:22 RBC 3.79 X10^6/uL (3.5-5.4) 08/18/19 04:22 Hgb 11.2 g/dL (12.0-16.0) L 08/18/19 04:22 Hct 34.5 % (36.0-47.0) L 08/18/19 04:22 MCV 91.1 fL (80.0-100.0) 08/18/19 04:22 MCH 29.5 pg (27.0-34.0) 08/18/19 04:22 MCHC 32.4 g/dL (33.0-35.0) L 08/18/19 04:22 RDW 13.9 % (11.6-16.5) 08/18/19 04:22 Plt Count 246 X10^3/uL (150.0-450.0) 08/18/19 04:22 Plt Count Comment Adequate (ADEQUATE) 08/18/19 04:22 MPV 8.6 fL (7.4-11.0) 08/18/19 04:22 Neut % (Auto) 90.4 % (42.0-75.0) H 08/18/19 04:22 Lymph % (Auto) 5.5 % (21.0-51.0) L 08/18/19 04:22 [place] % (Auto) 4.1 % (0.0-13.0) 08/18/19 04:22 Eos % (Auto) 0.0 % (0.9-2.9) L 08/18/19 04:22 Baso % (Auto) 0 % (0.2-1.0) L 08/18/19 04:22 Neut # (Auto) 6.9 x10^3/uL (2.2-4.8) H 08/18/19 04:22 Lymph # (Auto) 0.4 X10^3/uL (1.3-2.9) L 08/18/19 04:22 [place] # (Auto) 0.3 x10^3/uL (0.3-0.8) 08/18/19 04:22 Eos # (Auto) 0.0 x10^3/uL (0.0-0.2) 08/18/19 04:22 Baso # (Auto) 0.0 X10^3/uL (0.0-0.1) 08/18/19 04:22 Absolute Nucleated RBC 0.0 /100WBC 08/18/19 04:22 Total Counted 100 08/18/19 04:22 Neutrophils % (Manual) 84 % (39-76) H 08/18/19 04:22 Lymphocytes % (Manual) 10 % (13-43) L 08/18/19 04:22 Monocytes % (Manual) 6 % (4-9) 08/18/19 04:22 Plt Morphology Comment Normal (NORMAL) 08/18/19 04:22 RBC Morphology Normal (NORMAL) 08/18/19 04:22 Sample Site [facility] 08/18/19 07:24 ABG pH 7.350 (7.35-7.45) 08/18/19 07:24 ABG pCO2 93.0 mmHg (35.0-45.0) H* 08/18/19 07:24 ABG pO2 138.0 mmHg (80.0-100.0) H 08/18/19 07:24 ABG HCO3 51.3 mmol/L (22-26) H* 08/18/19 07:24 ABG O2 Saturation 99.0 % (90-100) 08/18/19 07:24 ABG Base Excess 20.8 mmol/L (-2.0-2.0) H 08/18/19 07:24 Mayo Test N/a 08/18/19 07:24 A-a Gradient -55.0 mmHg 08/18/19 07:24 FiO2 28.0 08/18/19 07:24 Blood Gas Comments Pt luciana well elj 08/18/19 07:24 Sodium 141 mmol/L (136-145) 08/18/19 04:22 Corrected Sodium 142 mmol/L (136-145) 08/18/19 04:22 Potassium 4.1 mmol/L (3.5-5.1) 08/18/19 04:22 Chloride 99 mmol/L (98-107) 08/18/19 04:22 Carbon Dioxide 44.2 mmol/L (21-32) H* 08/18/19 04:22 BUN 7 mg/dL (7-18) 08/18/19 04:22 Creatinine 0.43 mg/dL (0.55-1.02) L 08/18/19 04:22 Est GFR (MDRD) Af Amer > 60 (>60) 08/18/19 04:22 Est GFR (MDRD) Non-Af > 60 (>60) 08/18/19 04:22 Glucose 153 mg/dL (65-99) H 08/18/19 04:22 Calcium 8.7 mg/dL (8.5-10.1) 08/18/19 04:22 Corrected Calcium 9.6 mg/dL (8.5-10.1) 08/18/19 04:22 Total Bilirubin 0.20 mg/dL (0.2-1.0) 08/18/19 04:22 AST 19 Units/L (15-37) 08/18/19 04:22 ALT 36 Units/L (12-78) 08/18/19 04:22 Alkaline Phosphatase 39 Units/L (46-116) L 08/18/19 04:22 Total Protein 5.9 g/dL (6.4-8.2) L 08/18/19 04:22 Albumin 2.9 g/dL (3.4-5.0) L 08/18/19 04:22 Globulin 3.0 g/dL (2.5-4.5) 08/18/19 04:22 Albumin/Globulin Ratio 1.0 Ratio (1.1-2.1) L 08/18/19 04:22 Specimen Type Clean catch urine 08/14/19 13:00 Urine Color Yellow (YELLOW) 08/14/19 13:00 Urine Appearance Clear (CLEAR) 08/14/19 13:00 Urine pH 7.0 (5.0 - 8.0) 08/14/19 13:00 Ur Specific [place] 1.010 (1.000-1.030) 08/14/19 13:00 Urine Protein Negative (NEGATIVE) 08/14/19 13:00 Urine Glucose (UA) Negative (NEGATIVE) 08/14/19 13:00 Urine Ketones Negative (NEGATIVE) 08/14/19 13:00 Urine Occult Blood Negative (NEGATIVE) 08/14/19 13:00 Urine Nitrite Negative (NEGATIVE) 08/14/19 13:00 Urine Bilirubin Negative (NEGATIVE) 08/14/19 13:00 Urine Urobilinogen Normal (NORMAL) 08/14/19 13:00 Ur Leukocyte Esterase Negative (NEGATIVE) 08/14/19 13:00 - Plan (1) COPD exacerbation Status: Acute Plan: IV FLUIDS, IV LEVAQUIN, IV FORTAZ, SOLU-MEDROL, RESPIRATORY TREATMENTS, CONTINUE TO MONITOR. (2) Acute bronchitis Status: Acute Qualifiers: Bronchitis organism: unspecified organism Qualified Code(s): J20.9 - Acute bronchitis, unspecified (3) Altered mental status Status: Acute Qualifiers: Altered mental status type: transient alteration of awareness Qualified Code(s): R40.4 - Transient alteration of awareness
[2019-08-18] MEDS: NORVASC TAB 5 MG PO SCH (21:11)
[2019-08-18] MEDS: ZOCOR TAB 20 MG PO SCH (21:11)
--- NOTE | 2019-08-18 22:32 | PCM.PROG ---
Progress Note - Progress Note for Day of Date of Exam: 08/18/19 - Subjective Subjective: WAS ADMITTED FOR COPD EXACERBATION, ACUTE BRONCHITIS, AND AMS. TODAY, SHE IS ALERT AND ORIENTED, LYING IN BED ON MORNING ROUNDS. SHE CONTINUES WITH COUGH AND SHORTNESS OF BREATH TODAY. ON EXAMINATION, HEART IS REGULAR IN RATE AND RHYTHM. BILATERAL LUNGS ARE NOTED WITH SCATTERED WHEEZING THROUGHOUT. ABDOMEN IS ROUND, SOFT, AND NON-TENDER WITH NORMAL BOWEL SOUNDS IN ALL QUADRANTS. HER VITALS THIS MORNING ARE: 97.9-90-20-99%-147/67. LABS WERE OBTAINED. ABNORMAL LAB VALUES INCLUDE THE FOLLOWING: HGB 11.2, HCT 34.5, CARBON DIOXIDE 44.2, CREATININE 0.43, GLUCOSE 153, ALK PHOS 39, TOTAL PROTEIN 5.9, ALBUMIN 2.9. URINE AND SPUTUM CULTURES ARE PENDING. A CHEST XRAY WAS OBTAINED AND REVEALED: UNCHANGED COPD. SHE IS CURRENTLY RECEIVING: NORMAL SALINE AT 80 ML/HR, IV FORTAZ, IV LEVAQUIN, SOLU-MEDROL 80MG IV Q8H, LOVENOX 40MG SC DAILY, AND RESPIRATORY TREATMENTS. WE WILL CONTINUE WITH CURRENT PLAN OF CARE TODAY AND ADD ROBERT-DUR 200MG PO BID. OTHERWISE, WE WILL FOLLOW UP WITH AM LABS AND CONTINUE TO MONITOR. - Past Medical Family Social History Past Med/Fam/Surg Hx: No changes since H&P Allergies: Allergies aspirin Allergy (Verified 04/27/18 11:47) sulfamethoxazole [From Bactrim] Allergy (Verified 04/27/18 11:47) trimethoprim [From Bactrim] Allergy (Verified 04/27/18 11:47) - Review of Systems ROS: No change since H&P - Vital Signs and I&O's Vital Signs: Temperature 98.9 F Pulse Rate [Right Brachial] 110 Pulse Rate 117 Respiratory Rate 20 Blood Pressure [Right Arm] 144/67 O2 Sat by Pulse Oximetry 97 Intake and Output: Intake & Output 08/16/19 08/17/19 08/18/19 08/19/19 11:59 11:59 11:59 11:59 Intake Total 2880 / 2880 2280 / 2280 1590 / 1590 1240 / 1240 Output Total 400 / 400 400 / 400 Balance 2480 / 2480 2280 / 2280 1190 / 1190 1240 / 1240 - Physical Exam Oriented: Normal Eyes: Normal Ear: Normal Nose: Normal Throat: Normal Respiratory: Diminished, Wheezes Cardiovascular: Normal. negative: S3, S4, Murmur : Normal Auscultation: Bowel Sounds: Normal Palpation: Normal Tenderness: Diffuse Skin: Normal Musculoskeletal: Normal Psychiatric: Normal Mood Description: Calm Affect: Normal Speech Pattern: Clear, Appropriate - Laboratory and Diagnostics Result Diagrams: 08/18/19 04:22 08/18/19 04:22 Labs: 08/15/19 23:04 Sputum - Expectorated Sputum Sputum Culture - Final 08/15/19 23:04 Sputum - Expectorated Sputum - Final 08/14/19 13:00 Urine,Clean Catch Urine Culture - Final Laboratory WBC 7.6 X10^3/uL (3.6-10.0) 08/18/19 04:22 RBC 3.79 X10^6/uL (3.5-5.4) 08/18/19 04:22 Hgb 11.2 g/dL (12.0-16.0) L 08/18/19 04:22 Hct 34.5 % (36.0-47.0) L 08/18/19 04:22 MCV 91.1 fL (80.0-100.0) 08/18/19 04:22 MCH 29.5 pg (27.0-34.0) 08/18/19 04:22 MCHC 32.4 g/dL (33.0-35.0) L 08/18/19 04:22 RDW 13.9 % (11.6-16.5) 08/18/19 04:22 Plt Count 246 X10^3/uL (150.0-450.0) 08/18/19 04:22 Plt Count Comment Adequate (ADEQUATE) 08/18/19 04:22 MPV 8.6 fL (7.4-11.0) 08/18/19 04:22 Neut % (Auto) 90.4 % (42.0-75.0) H 08/18/19 04:22 Lymph % (Auto) 5.5 % (21.0-51.0) L 08/18/19 04:22 [place] % (Auto) 4.1 % (0.0-13.0) 08/18/19 04:22 Eos % (Auto) 0.0 % (0.9-2.9) L 08/18/19 04:22 Baso % (Auto) 0 % (0.2-1.0) L 08/18/19 04:22 Neut # (Auto) 6.9 x10^3/uL (2.2-4.8) H 08/18/19 04:22 Lymph # (Auto) 0.4 X10^3/uL (1.3-2.9) L 08/18/19 04:22 [place] # (Auto) 0.3 x10^3/uL (0.3-0.8) 08/18/19 04:22 Eos # (Auto) 0.0 x10^3/uL (0.0-0.2) 08/18/19 04:22 Baso # (Auto) 0.0 X10^3/uL (0.0-0.1) 08/18/19 04:22 Absolute Nucleated RBC 0.0 /100WBC 08/18/19 04:22 Total Counted 100 08/18/19 04:22 Neutrophils % (Manual) 84 % (39-76) H 08/18/19 04:22 Lymphocytes % (Manual) 10 % (13-43) L 08/18/19 04:22 Monocytes % (Manual) 6 % (4-9) 08/18/19 04:22 Plt Morphology Comment Normal (NORMAL) 08/18/19 04:22 RBC Morphology Normal (NORMAL) 08/18/19 04:22 Sample Site [facility] 08/18/19 07:24 ABG pH 7.350 (7.35-7.45) 08/18/19 07:24 ABG pCO2 93.0 mmHg (35.0-45.0) H* 08/18/19 07:24 ABG pO2 138.0 mmHg (80.0-100.0) H 08/18/19 07:24 ABG HCO3 51.3 mmol/L (22-26) H* 08/18/19 07:24 ABG O2 Saturation 99.0 % (90-100) 08/18/19 07:24 ABG Base Excess 20.8 mmol/L (-2.0-2.0) H 08/18/19 07:24 Mayo Test N/a 08/18/19 07:24 A-a Gradient -55.0 mmHg 08/18/19 07:24 FiO2 28.0 08/18/19 07:24 Blood Gas Comments Pt luciana well elj 08/18/19 07:24 Sodium 141 mmol/L (136-145) 08/18/19 04:22 Corrected Sodium 142 mmol/L (136-145) 08/18/19 04:22 Potassium 4.1 mmol/L (3.5-5.1) 08/18/19 04:22 Chloride 99 mmol/L (98-107) 08/18/19 04:22 Carbon Dioxide 44.2 mmol/L (21-32) H* 08/18/19 04:22 BUN 7 mg/dL (7-18) 08/18/19 04:22 Creatinine 0.43 mg/dL (0.55-1.02) L 08/18/19 04:22 Est GFR (MDRD) Af Amer > 60 (>60) 08/18/19 04:22 Est GFR (MDRD) Non-Af > 60 (>60) 08/18/19 04:22 Glucose 153 mg/dL (65-99) H 08/18/19 04:22 Calcium 8.7 mg/dL (8.5-10.1) 08/18/19 04:22 Corrected Calcium 9.6 mg/dL (8.5-10.1) 08/18/19 04:22 Total Bilirubin 0.20 mg/dL (0.2-1.0) 08/18/19 04:22 AST 19 Units/L (15-37) 08/18/19 04:22 ALT 36 Units/L (12-78) 08/18/19 04:22 Alkaline Phosphatase 39 Units/L (46-116) L 08/18/19 04:22 Total Protein 5.9 g/dL (6.4-8.2) L 08/18/19 04:22 Albumin 2.9 g/dL (3.4-5.0) L 08/18/19 04:22 Globulin 3.0 g/dL (2.5-4.5) 08/18/19 04:22 Albumin/Globulin Ratio 1.0 Ratio (1.1-2.1) L 08/18/19 04:22 Specimen Type Clean catch urine 08/14/19 13:00 Urine Color Yellow (YELLOW) 08/14/19 13:00 Urine Appearance Clear (CLEAR) 08/14/19 13:00 Urine pH 7.0 (5.0 - 8.0) 08/14/19 13:00 Ur Specific [place] 1.010 (1.000-1.030) 08/14/19 13:00 Urine Protein Negative (NEGATIVE) 08/14/19 13:00 Urine Glucose (UA) Negative (NEGATIVE) 08/14/19 13:00 Urine Ketones Negative (NEGATIVE) 08/14/19 13:00 Urine Occult Blood Negative (NEGATIVE) 08/14/19 13:00 Urine Nitrite Negative (NEGATIVE) 08/14/19 13:00 Urine Bilirubin Negative (NEGATIVE) 08/14/19 13:00 Urine Urobilinogen Normal (NORMAL) 08/14/19 13:00 Ur Leukocyte Esterase Negative (NEGATIVE) 08/14/19 13:00 - Plan (1) COPD exacerbation Status: Acute Plan: IV FLUIDS, IV LEVAQUIN, IV FORTAZ, SOLU-MEDROL, RESPIRATORY TREATMENTS, CONTINUE TO MONITOR. (2) Acute bronchitis Status: Acute Qualifiers: Bronchitis organism: unspecified organism Qualified Code(s): J20.9 - Acute bronchitis, unspecified (3) Altered mental status Status: Acute Qualifiers: Altered mental status type: transient alteration of awareness Qualified Code(s): R40.4 - Transient alteration of awareness
[2019-08-19] MEDS: FORTAZ or TAZICEF VIAL INJ 1 G in NS 100 ML IV + SPIKE MINIBAG* 100 ML IV SCH ×4 (05:02→21:00)
[2019-08-19 06:44] LABS: BASOPHILS % (AUTO) 0.2 % (0.2-1.0); EOSINOPHILS % (AUTO) 0.2 % (0.9-2.9); HEMATOCRIT 31.5 % (36.0-47.0); HEMOGLOBIN 10.3 g/dL (12.0-16.0); LYMPHOCYTES # (AUTO) 1.5 X10^3/uL (1.3-2.9); LYMPHOCYTES % (AUTO) 18.9 % (21.0-51.0); MEAN CORPUSCULAR HEMOGLOBIN 29.8 pg (27.0-34.0); MEAN CORPUSCULAR HGB CONC 32.7 g/dL (33.0-35.0); MEAN CORPUSCULAR VOLUME 91.2 fL (80.0-100.0); MEAN PLATELET VOLUME 8.5 fL (7.4-11.0); MONOCYTES # (AUTO) 1.1 x10^3/uL (0.3-0.8); MONOCYTES % (AUTO) 13.5 % (0.0-13.0); NEUTROPHILS # (AUTO) 5.4 x10^3/uL (2.2-4.8); NEUTROPHILS % (AUTO) 67.2 % (42.0-75.0); PLATELET COUNT 200 X10^3/uL (150.0-450.0); RED BLOOD COUNT 3.45 X10^6/uL (3.5-5.4); RED CELL DISTRIBUTION WIDTH 14.1 % (11.6-16.5); WHITE BLOOD COUNT 8.1 X10^3/uL (3.6-10.0)
[2019-08-19 06:56] LABS: ALANINE AMINOTRANSFERASE 31 Units/L (12-78); ALBUMIN 2.4 g/dL (3.4-5.0); ALKALINE PHOSPHATASE 35 Units/L (46-116); ASPARTATE AMINO TRANSFERASE 18 Units/L (15-37); BLOOD UREA NITROGEN 8 mg/dL (7-18); CALCIUM 8.2 mg/dL (8.5-10.1); CHLORIDE 99 mmol/L (98-107); COR CA(FOR HYPOALB) 9.5 mg/dL (8.5-10.1); COR NA(FOR HYPERGLY) 143 mmol/L (136-145); SODIUM 142 mmol/L (136-145); TOTAL PROTEIN 5.1 g/dL (6.4-8.2); eGFR NON BLACK RACES > 60 (>60)
[2019-08-19 07:07] LABS: CARBON DIOXIDE > 45.0 mmol/L (21-32)
--- NOTE | 2019-08-19 07:08 | RAD ---
HISTORYSOBSTUDYPortable AP chestCOMPARISONFebruary 2019FINDINGSThe lungs remain hyperinflated and grossly clear. The heart and mediastinum are unremarkable. There is no edema or effusion.IMPRESSIONNo significant change severe COPDElectronically signed by: DANGELO TAYLOR (Aug 19, 2019 07:06:57)
[2019-08-19] MEDS: LOVENOX INJ 40 MG SYR SC SCH (08:22)
[2019-08-19] MEDS: LEVAQUIN PREMIX IV 750 MG 750 MG/150 ML BAG IV SCH (08:22)
[2019-08-19] MEDS: TAB-A-VITE PO SCH (08:23)
[2019-08-19] MEDS: ATIVAN TAB 0.5 MG PO PRN ×2 (08:23→20:28)
[2019-08-19] MEDS: LOPRESSOR TAB 25 MG PO SCH ×2 (08:23→20:29)
[2019-08-19] MEDS: MUCINEX EXPECTORANT PO SCH ×2 (08:23→20:27)
[2019-08-19] MEDS: THEO-DUR TAB 200 MG PO SCH ×2 (08:23→20:28)
[2019-08-19] MEDS: OSCAL+D or CALTRATE+D PO SCH (08:24)
[2019-08-19] MEDS ORDERED: MICRO K EXTEN CAP 10 MEQ PO PRN (08:32)
[2019-08-19] MEDS ORDERED: K-RIDER 10 MEQ/NS 100 ML 10 MEQ/100 ML BAG IV PRN (08:32)
[2019-08-19] MEDS ORDERED: KLOR-CON PO PRN (08:32)
[2019-08-19] MEDS ORDERED: K-DUR TAB 20 MEQ PO PRN (08:32)
[2019-08-19] MEDS ORDERED: POTASSIUM CHLORIDE LIQ 20 MEQ UDC PO PRN (08:32)
[2019-08-19] MEDS ORDERED: POTASSIUM CHL 60 MEQ/NS 0.45% 500 ML IV PRN (08:32)
[2019-08-19] MEDS ORDERED: POTASSIUM CHL 40 MEQ/NS 0.45% 500 ML IV PRN (08:32)
[2019-08-19] MEDS: PULMICORT NEB TX 0.5 MG NEB SCH ×2 (08:55→20:23)
[2019-08-19] MEDS: PROVENTIL NEB TX 0.083% 2.5MG/ 3ML NEB PRN ×4 (08:59→20:23)
[2019-08-19 10:55] LABS: ABG BASE EXCESS 26.5 mmol/L (-2.0-2.0)
[2019-08-19 10:56] LABS: ABG HCO3 55.6 mmol/L (22-26)
[2019-08-19] MEDS: NS 1000 ML 1,000 ML IV SCH ×2 (14:28→23:07)
[2019-08-19] MEDS: ZOCOR TAB 20 MG PO SCH (20:28)
[2019-08-19] MEDS: NORVASC TAB 5 MG PO SCH (20:29)
--- NOTE | 2019-08-19 21:04 | PCM.PROG ---
Progress Note - Progress Note for Day of Date of Exam: 08/19/19 - Subjective Subjective: WAS ADMITTED FOR COPD EXACERBATION, ACUTE BRONCHITIS, AND AMS. TODAY, SHE IS ALERT AND ORIENTED, LYING IN BED ON MORNING ROUNDS. SHE CONTINUES WITH COUGH AND SHORTNESS OF BREATH TODAY. ON EXAMINATION, HEART IS REGULAR IN RATE AND RHYTHM. BILATERAL LUNGS ARE NOTED WITH SCATTERED WHEEZING THROUGHOUT. ABDOMEN IS ROUND, SOFT, AND NON-TENDER WITH NORMAL BOWEL SOUNDS IN ALL QUADRANTS. HER VITALS THIS MORNING ARE: 98.2-87-20-97%-172/79. LABS WERE OBTAINED. ABNORMAL LAB VALUES INCLUDE THE FOLLOWING: RBC 3.45, HGB 10.3, HCT 31.5, POTASSIUM 3.2, CARBON DIOXODE >45.0, CREATININE 0.40, GLUCOSE 134, CALCIUM 8.2, TOTAL BILI <0.10, ALK PHOS 35, TOTAL PROTEIN 5.1, ALBUMIN 2.4. URINE AND SP UTUM CULTURES ARE PENDING. A CHEST XRAY WAS OBTAINED AND REVEALED: NO SIGNIFICANT CHANGE SEVERE COPD. SHE IS CURRENTLY RECEIVING: NORMAL SALINE AT 80 ML/HR, IV FORTAZ, IV LEVAQUIN, ROBERT-DUR 200MG PO BID, SOLU-MEDROL 80MG IV Q8H, LOVENOX 40MG SC DAILY, AND RESPIRATORY TREATMENTS. WE WILL CONTINUE WITH CURRENT PLAN OF CARE TODAY. OTHERWISE, WE WILL FOLLOW UP WITH AM LABS AND CONTINUE TO MONITOR. - Past Medical Family Social History Past Med/Fam/Surg Hx: No changes since H&P Allergies: Allergies aspirin Allergy (Verified 04/27/18 11:47) sulfamethoxazole [From Bactrim] Allergy (Verified 04/27/18 11:47) trimethoprim [From Bactrim] Allergy (Verified 04/27/18 11:47) - Review of Systems ROS: No change since H&P - Vital Signs and I&O's Vital Signs: Temperature 98.1 F Pulse Rate [Right Brachial] 91 Pulse Rate 105 Respiratory Rate 20 Blood Pressure [Right Arm] 146/67 O2 Sat by Pulse Oximetry 97 Intake and Output: Intake & Output 08/17/19 08/18/19 08/19/19 08/20/19 11:59 11:59 11:59 11:59 Intake Total 2280 / 2280 1590 / 1590 3490 / 3490 980 / 980 Output Total 400 / 400 2100 / 2100 Balance 2280 / 2280 1190 / 1190 3490 / 3490 -1120 / -1120 - Physical Exam Oriented: Normal Eyes: Normal Ear: Normal Nose: Normal Throat: Normal Respiratory: Diminished, Wheezes Cardiovascular: Normal. negative: S3, S4, Murmur : Normal Auscultation: Bowel Sounds: Normal Tenderness: Diffuse Skin: Normal Musculoskeletal: Normal Psychiatric: Normal Mood Description: Calm Affect: Normal Speech Pattern: Clear, Appropriate - Laboratory and Diagnostics Result Diagrams: 08/19/19 05:30 08/19/19 05:30 Labs: 08/15/19 23:04 Sputum - Expectorated Sputum Sputum Culture - Final 08/15/19 23:04 Sputum - Expectorated Sputum - Final 08/14/19 13:00 Urine,Clean Catch Urine Culture - Final Laboratory WBC 8.1 X10^3/uL (3.6-10.0) 08/19/19 05:30 RBC 3.45 X10^6/uL (3.5-5.4) L 08/19/19 05:30 Hgb 10.3 g/dL (12.0-16.0) L 08/19/19 05:30 Hct 31.5 % (36.0-47.0) L 08/19/19 05:30 MCV 91.2 fL (80.0-100.0) 08/19/19 05:30 MCH 29.8 pg (27.0-34.0) 08/19/19 05:30 MCHC 32.7 g/dL (33.0-35.0) L 08/19/19 05:30 RDW 14.1 % (11.6-16.5) 08/19/19 05:30 Plt Count 200 X10^3/uL (150.0-450.0) 08/19/19 05:30 Plt Count Comment Adequate (ADEQUATE) 08/18/19 04:22 MPV 8.5 fL (7.4-11.0) 08/19/19 05:30 Neut % (Auto) 67.2 % (42.0-75.0) 08/19/19 05:30 Lymph % (Auto) 18.9 % (21.0-51.0) L 08/19/19 05:30 [place] % (Auto) 13.5 % (0.0-13.0) H 08/19/19 05:30 Eos % (Auto) 0.2 % (0.9-2.9) L 08/19/19 05:30 Baso % (Auto) 0.2 % (0.2-1.0) 08/19/19 05:30 Neut # (Auto) 5.4 x10^3/uL (2.2-4.8) H 08/19/19 05:30 Lymph # (Auto) 1.5 X10^3/uL (1.3-2.9) 08/19/19 05:30 [place] # (Auto) 1.1 x10^3/uL (0.3-0.8) H 08/19/19 05:30 Eos # (Auto) 0.0 x10^3/uL (0.0-0.2) 08/19/19 05:30 Baso # (Auto) 0.0 X10^3/uL (0.0-0.1) 08/19/19 05:30 Absolute Nucleated RBC 0.0 /100WBC 08/19/19 05:30 Total Counted 100 08/18/19 04:22 Neutrophils % (Manual) 84 % (39-76) H 08/18/19 04:22 Lymphocytes % (Manual) 10 % (13-43) L 08/18/19 04:22 Monocytes % (Manual) 6 % (4-9) 08/18/19 04:22 Plt Morphology Comment Normal (NORMAL) 08/18/19 04:22 RBC Morphology Normal (NORMAL) 08/18/19 04:22 Sample Site Right brachial 08/19/19 10:46 ABG pH 7.450 (7.35-7.45) 08/19/19 10:46 ABG pCO2 80.0 mmHg (35.0-45.0) H* 08/19/19 10:46 ABG pO2 97.0 mmHg (80.0-100.0) 08/19/19 10:46 ABG HCO3 55.6 mmol/L (22-26) H* 08/19/19 10:46 ABG O2 Saturation 98.0 % (90-100) 08/19/19 10:46 ABG Base Excess 26.5 mmol/L (-2.0-2.0) H 08/19/19 10:46 Mayo Test Na 08/19/19 10:46 A-a Gradient 3.0 mmHg 08/19/19 10:46 FiO2 28.0 08/19/19 10:46 Blood Gas Comments Miles well aw 08/19/19 10:46 Sodium 142 mmol/L (136-145) 08/19/19 05:30 Corrected Sodium 143 mmol/L (136-145) 08/19/19 05:30 Potassium 3.2 mmol/L (3.5-5.1) L 08/19/19 05:30 Chloride 99 mmol/L (98-107) 08/19/19 05:30 Carbon Dioxide > 45.0 mmol/L (21-32) H* 08/19/19 05:30 BUN 8 mg/dL (7-18) 08/19/19 05:30 Creatinine 0.40 mg/dL (0.55-1.02) L 08/19/19 05:30 Est GFR (MDRD) Af Amer > 60 (>60) 08/19/19 05:30 Est GFR (MDRD) Non-Af > 60 (>60) 08/19/19 05:30 Glucose 134 mg/dL (65-99) H 08/19/19 05:30 Calcium 8.2 mg/dL (8.5-10.1) L 08/19/19 05:30 Corrected Calcium 9.5 mg/dL (8.5-10.1) 08/19/19 05:30 Magnesium 1.8 mg/dL (1.7-2.9) 08/19/19 05:30 Total Bilirubin < 0.10 mg/dL (0.2-1.0) L 08/19/19 05:30 AST 18 Units/L (15-37) 08/19/19 05:30 ALT 31 Units/L (12-78) 08/19/19 05:30 Alkaline Phosphatase 35 Units/L (46-116) L 08/19/19 05:30 Total Protein 5.1 g/dL (6.4-8.2) L 08/19/19 05:30 Albumin 2.4 g/dL (3.4-5.0) L 08/19/19 05:30 Globulin 2.7 g/dL (2.5-4.5) 08/19/19 05:30 Albumin/Globulin Ratio 0.9 Ratio (1.1-2.1) L 08/19/19 05:30 Specimen Type Clean catch urine 08/14/19 13:00 Urine Color Yellow (YELLOW) 08/14/19 13:00 Urine Appearance Clear (CLEAR) 08/14/19 13:00 Urine pH 7.0 (5.0 - 8.0) 08/14/19 13:00 Ur Specific [place] 1.010 (1.000-1.030) 08/14/19 13:00 Urine Protein Negative (NEGATIVE) 08/14/19 13:00 Urine Glucose (UA) Negative (NEGATIVE) 08/14/19 13:00 Urine Ketones Negative (NEGATIVE) 08/14/19 13:00 Urine Occult Blood Negative (NEGATIVE) 08/14/19 13:00 Urine Nitrite Negative (NEGATIVE) 08/14/19 13:00 Urine Bilirubin Negative (NEGATIVE) 08/14/19 13:00 Urine Urobilinogen Normal (NORMAL) 08/14/19 13:00 Ur Leukocyte Esterase Negative (NEGATIVE) 08/14/19 13:00 - Plan (1) COPD exacerbation Status: Acute Plan: IV FLUIDS, IV LEVAQUIN, IV FORTAZ, SOLU-MEDROL, RESPIRATORY TREATMENTS, CONTINUE TO MONITOR. (2) Acute bronchitis Status: Acute Qualifiers: Bronchitis organism: unspecified organism Qualified Code(s): J20.9 - Acute bronchitis, unspecified (3) Altered mental status Status: Acute Qualifiers: Altered mental status type: transient alteration of awareness Qualified Code(s): R40.4 - Transient alteration of awareness
[2019-08-20] MEDS: NS 1000 ML 1,000 ML IV SCH ×2 (03:05→14:32)
[2019-08-20] MEDS: FORTAZ or TAZICEF VIAL INJ 1 G in NS 100 ML IV + SPIKE MINIBAG* 100 ML IV SCH ×3 (05:29→21:07)
--- NOTE | 2019-08-20 06:37 | RAD ---
HISTORYSOBSTUDYAP chestCOMPARISONFebruary 2019FINDINGSThere is unchanged severe hyperinflation without focal consolidation or atelectasis or effusion. The heart size is normal.IMPRESSIONNo change severe COPDElectronically signed by: DANGELO TAYLOR (Aug 20, 2019 06:36:37)
[2019-08-20 06:40] LABS: BASOPHILS % (AUTO) 0.3 % (0.2-1.0); EOSINOPHILS # (AUTO) 0.2 x10^3/uL (0.0-0.2); EOSINOPHILS % (AUTO) 2.6 % (0.9-2.9); HEMATOCRIT 34.6 % (36.0-47.0); HEMOGLOBIN 11.3 g/dL (12.0-16.0); LYMPHOCYTES # (AUTO) 1.5 X10^3/uL (1.3-2.9); LYMPHOCYTES % (AUTO) 19.3 % (21.0-51.0); MEAN CORPUSCULAR HEMOGLOBIN 29.6 pg (27.0-34.0); MEAN CORPUSCULAR HGB CONC 32.7 g/dL (33.0-35.0); MEAN CORPUSCULAR VOLUME 90.4 fL (80.0-100.0); MEAN PLATELET VOLUME 8.2 fL (7.4-11.0); MONOCYTES # (AUTO) 0.9 x10^3/uL (0.3-0.8); MONOCYTES % (AUTO) 11.9 % (0.0-13.0); NEUTROPHILS % (AUTO) 65.9 % (42.0-75.0); PLATELET COUNT 224 X10^3/uL (150.0-450.0); RED BLOOD COUNT 3.83 X10^6/uL (3.5-5.4); RED CELL DISTRIBUTION WIDTH 13.8 % (11.6-16.5); WHITE BLOOD COUNT 7.6 X10^3/uL (3.6-10.0)
[2019-08-20 07:11] LABS: ALANINE AMINOTRANSFERASE 35 Units/L (12-78); ALBUMIN 2.8 g/dL (3.4-5.0); ALKALINE PHOSPHATASE 38 Units/L (46-116); ASPARTATE AMINO TRANSFERASE 15 Units/L (15-37); BLOOD UREA NITROGEN 6 mg/dL (7-18); CALCIUM 8.5 mg/dL (8.5-10.1); CHLORIDE 100 mmol/L (98-107); COR CA(FOR HYPOALB) 9.5 mg/dL (8.5-10.1); COR NA(FOR HYPERGLY) 141 mmol/L (136-145); SODIUM 141 mmol/L (136-145); TOTAL PROTEIN 5.8 g/dL (6.4-8.2); eGFR NON BLACK RACES > 60 (>60)
[2019-08-20 07:22] LABS: CARBON DIOXIDE 44.3 mmol/L (21-32)
[2019-08-20] MEDS: PROVENTIL NEB TX 0.083% 2.5MG/ 3ML NEB PRN ×4 (08:15→21:32)
[2019-08-20] MEDS: PULMICORT NEB TX 0.5 MG NEB SCH ×2 (08:15→21:32)
[2019-08-20] MEDS: THEO-DUR TAB 200 MG PO SCH ×2 (08:30→21:05)
[2019-08-20] MEDS: MUCINEX EXPECTORANT PO SCH ×2 (08:31→21:05)
[2019-08-20] MEDS: LEVAQUIN PREMIX IV 750 MG 750 MG/150 ML BAG IV SCH (08:31)
[2019-08-20] MEDS: LOPRESSOR TAB 25 MG PO SCH ×2 (08:31→21:06)
[2019-08-20] MEDS: OSCAL+D or CALTRATE+D PO SCH (08:31)
[2019-08-20] MEDS: TAB-A-VITE PO SCH (08:31)
[2019-08-20] MEDS: ATIVAN TAB 0.5 MG PO PRN ×2 (08:31→21:06)
[2019-08-20] MEDS: LOVENOX INJ 40 MG SYR SC SCH (08:32)
--- NOTE | 2019-08-20 17:23 | PCM.PROG ---
Progress Note - Progress Note for Day of Date of Exam: 08/20/19 - Subjective Subjective: IS BEING TREATED FOR COPD EXACERBATION AND ACUTE BRONCHITIS. TODAY, SHE IS ALERT AND ORIENTED, LYING IN BED ON MORNING ROUNDS. SHE CONTINUES WITH COUGH AND SHORTNESS OF BREATH TODAY, BUT REPORTS SLIGHT IMPROVEMENT SINCE ADMISSION. SHE ALSO REPORTS WEAKNESS. ON EXAMINATION, HEART IS REGULAR IN RATE AND RHYTHM. BILATERAL LUNGS ARE NOTED WITH SCATTERED WHEEZING THROUGHOUT. ABDOMEN IS ROUND, SOFT, AND NON-TENDER WITH NORMAL BOWEL SOUNDS IN ALL QUADRANTS. HER VITALS THIS MORNING ARE: 97.5-110-20-98%-172/75. LABS WERE OBTAINED. ABNORMAL LAB VALUES INCLUDE THE FOLLOWING: HGB 11.3, HCT 34.6, CARBON DIOXIDE 44.3, BUN 6, CREATININE 0.40, GLUCOSE 116, ALK PHOS 38, TOTAL PROTEIN 5.8, ALBUMIN 2.8. URINE AND SPUTUM CULTURES ARE PENDING. A CHEST XRAY WAS OBTAINED AND REVEALED: NO CHANGE SEVERE COPD. SHE IS CURRENTLY RECEIVING: NORMAL SALINE AT 80 ML/HR, IV FORTAZ, IV LEVAQUIN, ROBERT-DUR 200MG PO BID, SOLU-MEDROL 80MG IV Q8H, LOVENOX 40MG SC DAILY, AND RESPIRATORY TREATMENTS. WE WILL CONTINUE WITH CURRENT PLAN OF CARE TODAY AND ADD FLONASE. OTHERWISE, WE WILL FOLLOW UP WITH AM LABS AND CONTINUE TO MONITOR. - Past Medical Family Social History Past Med/Fam/Surg Hx: No changes since H&P Allergies: Allergies aspirin Allergy (Verified 04/27/18 11:47) sulfamethoxazole [From Bactrim] Allergy (Verified 04/27/18 11:47) trimethoprim [From Bactrim] Allergy (Verified 04/27/18 11:47) - Review of Systems ROS: No change since H&P - Vital Signs and I&O's Vital Signs: Temperature 98.2 F Pulse Rate [Right Brachial] 92 Pulse Rate 101 Respiratory Rate 20 Blood Pressure [Right Arm] 137/64 O2 Sat by Pulse Oximetry 99 Intake and Output: Intake & Output 08/18/19 08/19/19 08/20/19 08/21/19 11:59 11:59 11:59 11:59 Intake Total 1590 / 1590 3490 / 3490 1810 / 1810 1240 / 1240 Output Total 400 / 400 4050 / 4050 Balance 1190 / 1190 3490 / 3490 -2240 / -2240 1240 / 1240 - Physical Exam Oriented: Normal Eyes: Normal Ear: Normal Nose: Normal Throat: Normal Respiratory: Diminished, Wheezes Cardiovascular: Normal. negative: S3, S4, Murmur : Normal Auscultation: Bowel Sounds: Normal Tenderness: Diffuse Skin: Normal Musculoskeletal: Normal Psychiatric: Normal Mood Description: Calm Affect: Normal Speech Pattern: Clear, Appropriate - Laboratory and Diagnostics Result Diagrams: 08/20/19 06:10 08/20/19 06:10 Labs: 08/15/19 23:04 Sputum - Expectorated Sputum Sputum Culture - Final 08/15/19 23:04 Sputum - Expectorated Sputum - Final 08/14/19 13:00 Urine,Clean Catch Urine Culture - Final Laboratory WBC 7.6 X10^3/uL (3.6-10.0) 08/20/19 06:10 RBC 3.83 X10^6/uL (3.5-5.4) 08/20/19 06:10 Hgb 11.3 g/dL (12.0-16.0) L 08/20/19 06:10 Hct 34.6 % (36.0-47.0) L 08/20/19 06:10 MCV 90.4 fL (80.0-100.0) 08/20/19 06:10 MCH 29.6 pg (27.0-34.0) 08/20/19 06:10 MCHC 32.7 g/dL (33.0-35.0) L 08/20/19 06:10 RDW 13.8 % (11.6-16.5) 08/20/19 06:10 Plt Count 224 X10^3/uL (150.0-450.0) 08/20/19 06:10 Plt Count Comment Adequate (ADEQUATE) 08/18/19 04:22 MPV 8.2 fL (7.4-11.0) 08/20/19 06:10 Neut % (Auto) 65.9 % (42.0-75.0) 08/20/19 06:10 Lymph % (Auto) 19.3 % (21.0-51.0) L 08/20/19 06:10 [place] % (Auto) 11.9 % (0.0-13.0) 08/20/19 06:10 Eos % (Auto) 2.6 % (0.9-2.9) 08/20/19 06:10 Baso % (Auto) 0.3 % (0.2-1.0) 08/20/19 06:10 Neut # (Auto) 5.0 x10^3/uL (2.2-4.8) H 08/20/19 06:10 Lymph # (Auto) 1.5 X10^3/uL (1.3-2.9) 08/20/19 06:10 [place] # (Auto) 0.9 x10^3/uL (0.3-0.8) H 08/20/19 06:10 Eos # (Auto) 0.2 x10^3/uL (0.0-0.2) 08/20/19 06:10 Baso # (Auto) 0.0 X10^3/uL (0.0-0.1) 08/20/19 06:10 Absolute Nucleated RBC 0.1 /100WBC 08/20/19 06:10 Total Counted 100 08/18/19 04:22 Neutrophils % (Manual) 84 % (39-76) H 08/18/19 04:22 Lymphocytes % (Manual) 10 % (13-43) L 08/18/19 04:22 Monocytes % (Manual) 6 % (4-9) 08/18/19 04:22 Plt Morphology Comment Normal (NORMAL) 08/18/19 04:22 RBC Morphology Normal (NORMAL) 08/18/19 04:22 Sample Site Right brachial 08/19/19 10:46 ABG pH 7.450 (7.35-7.45) 08/19/19 10:46 ABG pCO2 80.0 mmHg (35.0-45.0) H* 08/19/19 10:46 ABG pO2 97.0 mmHg (80.0-100.0) 08/19/19 10:46 ABG HCO3 55.6 mmol/L (22-26) H* 08/19/19 10:46 ABG O2 Saturation 98.0 % (90-100) 08/19/19 10:46 ABG Base Excess 26.5 mmol/L (-2.0-2.0) H 08/19/19 10:46 Mayo Test Na 08/19/19 10:46 A-a Gradient 3.0 mmHg 08/19/19 10:46 FiO2 28.0 08/19/19 10:46 Blood Gas Comments Miles well aw 08/19/19 10:46 Sodium 141 mmol/L (136-145) 08/20/19 06:10 Corrected Sodium 141 mmol/L (136-145) 08/20/19 06:10 Potassium 3.5 mmol/L (3.5-5.1) 08/20/19 06:10 Chloride 100 mmol/L (98-107) 08/20/19 06:10 Carbon Dioxide 44.3 mmol/L (21-32) H* 08/20/19 06:10 BUN 6 mg/dL (7-18) L 08/20/19 06:10 Creatinine 0.40 mg/dL (0.55-1.02) L 08/20/19 06:10 Est GFR (MDRD) Af Amer > 60 (>60) 08/20/19 06:10 Est GFR (MDRD) Non-Af > 60 (>60) 08/20/19 06:10 Glucose 116 mg/dL (65-99) H 08/20/19 06:10 Calcium 8.5 mg/dL (8.5-10.1) 08/20/19 06:10 Corrected Calcium 9.5 mg/dL (8.5-10.1) 08/20/19 06:10 Magnesium 1.8 mg/dL (1.7-2.9) 08/19/19 05:30 Total Bilirubin 0.20 mg/dL (0.2-1.0) 08/20/19 06:10 AST 15 Units/L (15-37) 08/20/19 06:10 ALT 35 Units/L (12-78) 08/20/19 06:10 Alkaline Phosphatase 38 Units/L (46-116) L 08/20/19 06:10 Total Protein 5.8 g/dL (6.4-8.2) L 08/20/19 06:10 Albumin 2.8 g/dL (3.4-5.0) L 08/20/19 06:10 Globulin 3.0 g/dL (2.5-4.5) 08/20/19 06:10 Albumin/Globulin Ratio 0.9 Ratio (1.1-2.1) L 08/20/19 06:10 Specimen Type Clean catch urine 08/14/19 13:00 Urine Color Yellow (YELLOW) 08/14/19 13:00 Urine Appearance Clear (CLEAR) 08/14/19 13:00 Urine pH 7.0 (5.0 - 8.0) 08/14/19 13:00 Ur Specific [place] 1.010 (1.000-1.030) 08/14/19 13:00 Urine Protein Negative (NEGATIVE) 08/14/19 13:00 Urine Glucose (UA) Negative (NEGATIVE) 08/14/19 13:00 Urine Ketones Negative (NEGATIVE) 08/14/19 13:00 Urine Occult Blood Negative (NEGATIVE) 08/14/19 13:00 Urine Nitrite Negative (NEGATIVE) 08/14/19 13:00 Urine Bilirubin Negative (NEGATIVE) 08/14/19 13:00 Urine Urobilinogen Normal (NORMAL) 08/14/19 13:00 Ur Leukocyte Esterase Negative (NEGATIVE) 08/14/19 13:00 - Plan (1) COPD exacerbation Status: Acute Plan: IV FLUIDS, IV LEVAQUIN, IV FORTAZ, SOLU-MEDROL, RESPIRATORY TREATMENTS, CONTINUE TO MONITOR. (2) Acute bronchitis Status: Acute Qualifiers: Bronchitis organism: unspecified organism Qualified Code(s): J20.9 - Acute bronchitis, unspecified (3) Altered mental status Status: Acute Qualifiers: Altered mental status type: transient alteration of awareness Qualified Code(s): R40.4 - Transient alteration of awareness
[2019-08-20] MEDS: FLONASE NASAL SPRAY ENOSTRIL SCH (17:45)
[2019-08-20] MEDS: NORVASC TAB 5 MG PO SCH (21:06)
[2019-08-20] MEDS: ZOCOR TAB 20 MG PO SCH (21:06)
[2019-08-21] MEDS: NS 1000 ML 1,000 ML IV SCH (05:18)
[2019-08-21] MEDS: FORTAZ or TAZICEF VIAL INJ 1 G in NS 100 ML IV + SPIKE MINIBAG* 100 ML IV SCH (05:49)
[2019-08-21] MEDS: PROVENTIL NEB TX 0.083% 2.5MG/ 3ML NEB PRN (06:35)
[2019-08-21 06:44] LABS: BASOPHILS % (AUTO) 0.4 % (0.2-1.0); EOSINOPHILS # (AUTO) 0.5 x10^3/uL (0.0-0.2); EOSINOPHILS % (AUTO) 6.4 % (0.9-2.9); HEMATOCRIT 35.7 % (36.0-47.0); HEMOGLOBIN 11.7 g/dL (12.0-16.0); LYMPHOCYTES # (AUTO) 1.7 X10^3/uL (1.3-2.9); LYMPHOCYTES % (AUTO) 20.4 % (21.0-51.0); MEAN CORPUSCULAR HEMOGLOBIN 29.7 pg (27.0-34.0); MEAN CORPUSCULAR HGB CONC 32.7 g/dL (33.0-35.0); MEAN PLATELET VOLUME 8.3 fL (7.4-11.0); MONOCYTES # (AUTO) 0.9 x10^3/uL (0.3-0.8); MONOCYTES % (AUTO) 11.2 % (0.0-13.0); NEUTROPHILS % (AUTO) 61.6 % (42.0-75.0); PLATELET COUNT 246 X10^3/uL (150.0-450.0); RED BLOOD COUNT 3.92 X10^6/uL (3.5-5.4); WHITE BLOOD COUNT 8.1 X10^3/uL (3.6-10.0)
[2019-08-21 06:59] LABS: ALANINE AMINOTRANSFERASE 33 Units/L (12-78); ALKALINE PHOSPHATASE 41 Units/L (46-116); ASPARTATE AMINO TRANSFERASE 19 Units/L (15-37); BLOOD UREA NITROGEN 9 mg/dL (7-18); CALCIUM 9.1 mg/dL (8.5-10.1); CHLORIDE 98 mmol/L (98-107); COR CA(FOR HYPOALB) 9.9 mg/dL (8.5-10.1); COR NA(FOR HYPERGLY) 139 mmol/L (136-145); CREATININE 0.47 mg/dL (0.55-1.02); SODIUM 139 mmol/L (136-145); TOTAL PROTEIN 6.2 g/dL (6.4-8.2); eGFR NON BLACK RACES > 60 (>60)
--- NOTE | 2019-08-21 07:23 | RAD ---
HISTORYsobSTUDYPortable AP chestCOMPARISONYesterday August 20FINDINGSThe lungs are severely hyperinflated as before. The heart and mediastinum are unremarkable. There are emphysematous changes in the upper lobes. There is no bony abnormality.IMPRESSIONUnchanged severe COPD and emphysema, no evidence for acute diseaseElectronically signed by: DANGELO TAYLOR (Aug 21, 2019 07:22:28)
[2019-08-21 07:24] LABS: CARBON DIOXIDE 44.3 mmol/L (21-32)
[2019-08-21] MEDS: PULMICORT NEB TX 0.5 MG NEB SCH (08:15)
[2019-08-21 08:34] VITALS: BP 129/56
[2019-08-21] MEDS: LOVENOX INJ 40 MG SYR SC SCH (10:17)
[2019-08-21] MEDS: MUCINEX EXPECTORANT PO SCH (10:18)
[2019-08-21] MEDS: LEVAQUIN PREMIX IV 750 MG 750 MG/150 ML BAG IV SCH (10:18)
[2019-08-21] MEDS: TAB-A-VITE PO SCH (10:19)
[2019-08-21] MEDS: THEO-DUR TAB 200 MG PO SCH (10:19)
[2019-08-21] MEDS: LOPRESSOR TAB 25 MG PO SCH (10:19)
[2019-08-21] MEDS: OSCAL+D or CALTRATE+D PO SCH (10:20)
[2019-08-21] MEDS: FLONASE NASAL SPRAY ENOSTRIL SCH ×2 (10:20→10:22)
[2019-08-21] MEDS: ATIVAN TAB 0.5 MG PO PRN (10:28)
== END 2019-08-21 10:38 | disposition swing bed (61) | DRG 192 ==
LOC: MED/SURG → OBSVTOIN 12:30
PROVIDERS: ADMIT Internal Medicine; ATTEND Internal Medicine
DX: J44.1 Chronic obstructive pulmonary disease with (acute) exacerbation; I10 Essential (primary) hypertension; J20.9 Acute bronchitis, unspecified; R06.02 Shortness of breath; E86.0 Dehydration; R40.4 Transient alteration of awareness; E78.49 Other hyperlipidemia
CPT/HCPCS: 36415; 36600; 71010; 71045; 71260; 80053; 81003; 82803; 83735; 85025; 87070; 87086; 87205; 94640; 97110; 97116; 97162; 97166; 97535; A4216; A4222; J0713; J1650; J1956; J2920; J7030; J7050; J7613; J7626

== ENCOUNTER 2019-08-21 10:30 | Inpatient (IN) ==
[2019-08-21] MEDS ORDERED: K-RIDER 10 MEQ/NS 100 ML 10 MEQ/100 ML BAG IV PRN (11:37)
[2019-08-21] MEDS ORDERED: POTASSIUM CHL 40 MEQ/NS 0.45% 500 ML IV PRN (11:37)
[2019-08-21] MEDS ORDERED: POTASSIUM CHLORIDE LIQ 20 MEQ UDC PO PRN (11:37)
[2019-08-21] MEDS ORDERED: TUMS PO PRN (11:37)
[2019-08-21] MEDS ORDERED: TYLENOL 500 MG TAB EXTRA STRENGTH PO PRN (11:37)
[2019-08-21] MEDS ORDERED: KLOR-CON PO PRN (11:37)
[2019-08-21] MEDS ORDERED: MICRO K EXTEN CAP 10 MEQ PO PRN (11:37)
[2019-08-21] MEDS ORDERED: POTASSIUM CHL 60 MEQ/NS 0.45% 500 ML IV PRN (11:37)
[2019-08-21] MEDS ORDERED: PROVENTIL NEB TX 0.083% 2.5MG/ 3ML NEB PRN (11:37)
[2019-08-21] MEDS: PROVENTIL NEB TX 0.083% 2.5MG/ 3ML NEB PRN ×2 (11:58→16:29)
[2019-08-21 13:03] VITALS: BMI 18.5
--- NOTE | 2019-08-21 14:26 | PT/OTEVAL ---
PT/OT OBJECTIVES - HISTORY Prescription: OT consult Diagnosis: COPD exacerbation Precautions: fall, SOB PMH: COPD, Dislipidemia, Hypertension Prior Level of Function: Independent Other: prior to hospitalization, pt lives with family in a single level home. Pt receives assistance with bathing but was basically independent with other ADL skills. pt uses 4 lit of O2 at home. - COGNITION Mental Status: Alert, Oriented, Name, Date, Place, Purpose Ability to Follow Directions: 3 Step - TRANSFERS Supine to Sit: Minimal Sit to Stand: Minimal Sit or Stand Pivot: Minimal - ADL'S Feeding: Independent Grooming: Setup Upper Body ADL: Setup Lower Body ADL: Setup Toileting: Setup - BALANCE Static Sitting: Good Standing: Good Balance Comment: G-/F- S/D standing balance Dynamic Sitting: Good Standing: Fair Balance Comment: G-/F- S/D standing balance - NEUROMOTOR/SENSATION Felipe. Lower Ext Sensation: WFL Coordination: WFL Felipe. Upper Ext Sensation: WFL Coordination: WFL Proprioception: WFL - HAND DOMINANCE Extremity Function: Hand Dominance: Right - ROM Bilateral UE Muscle Tone: WFL - STRENGTH Bilateral LE Strength Number: 3 Other comment: 3-/5 grossly graded Bilateral UE Strength Number: 3 PT/OT ASSESSMENT - OT Problem List: Decreased Mobility ADL's, Decreased Safety Aware, Decreased Dressing, Decreased Bathing, Decreased Grooming, Decreased UE Strength, Other Other, comment: decreased functional activity tolerance - OT GOALS Halfway Goals Days: 20 Mobility for ADL's: Pt will improve toilet t/f independently with AE as needed Safety Awareness: Pt will demonstrate G safety awareness to decrease fall risk Dressing: Pt will perform UB/LB dressing independently with AE as needed. Bathing: Pt will improve bathing skills to independent level Grooming: Pt will improve grooming skills to independent level Upper Ext. Strength/Use: Pt will increase BUE strength to 5/5 to increase ADL,t/f and mobility Other: Pt will imporve F.A.T. to G to increase efficiency with ADL Short Term Goals Days: 10 Mobility for ADL's: Pt will improve toilet t/f w/supv A with AE as needed Safety Awareness: Pt will demonstrate F safety awareness to decrease fall risk Dressing: Pt will perform UB/LB dressing w/supv A with AE as needed. Bathing: Pt will improve bathing skills to w/supv A Grooming: Pt will improve grooming skills to w/supv A Upper Ext. Strength/Use: Pt will increase BUE strength to 4/5 to increase ADL,t/f and mobility Other: Pt will imporve F.A.T. to G- to increase efficiency with ADL - PATIENT GOALS Patient/Family Goals: return to PLOF Goals Discussed with Patient/Family: Yes Rehabilitation Potential: good Justification for Potential: G family support, high level of PLOF, able to follow commands - PLAN Suggested Treatment Plan: Therapeutic Activity, Self Care Training, Neuro Re- education, Therapeutic Ex with HEP, Home Management, Patient Education, Family Education - FREQUENCY AND DURATION OT: 5xweek x hospital stay Expected Continuation of Care at Discharge: Home
[2019-08-21] MEDS: FORTAZ or TAZICEF VIAL INJ 1 G in NS 100 ML IV + SPIKE MINIBAG* 100 ML IV SCH ×2 (14:38→21:20)
--- NOTE | 2019-08-21 15:15 | PT/OTEVAL ---
PT/OT OBJECTIVES - HISTORY Prescription: PT consult Diagnosis: Swingbed- COPD exacerbation Precautions: falls, SOB, allergy PMH: COPD, Dislipidemia, Hypertension Prior Level of Function: Independent - COGNITION Mental Status: Alert, Oriented, Name, Date, Place, Purpose, Anxious, Decreased Safety Awarenes Communication Status: Verbal Ability to Follow Directions: 3 Step - BED MOBILITY Rolling: Minimal, x1 Scooting: Minimal, x1 Bridging: Minimal, x1 - TRANSFERS Supine to Sit: Minimal, x1 Sit to Stand: Minimal, x1 Sit or Stand Pivot: Minimal, x1 - BALANCE Static Sitting: Good Standing: Good Balance Comment: F- Dynamic standing Dynamic Sitting: Good Standing: Fair Balance Comment: G- static standing - NEUROMOTOR/SENSATION Felipe. Lower Ext Sensation: WFL Coordination: WFL Felipe. Upper Ext Sensation: WFL Coordination: WFL Proprioception: WFL - STRENGTH Bilateral LE Strength Number: 3 Other comment: 3-/5 grossly graded Bilateral UE Strength Number: 3 - GAIT Pt. ambulates how many feet?: 80 Amount of assistance required: Minimal Amount of Assistance Required: Minimal Type of Assistive Device: Rolling Walker PT/OT ASSESSMENT - PT Problem List: Decreased Bed Mobility, Decreased Transfers, Decreased Gait, Decreased Balance, Decreased Safety, Decreased LE Strength - PT GOALS Short Term Goals Days: 10 Mobility: Pt to be indep c bed mobility to allow return to PLOF Transfers: Pt to be indep c transfers to allow return to PLOF Gait: Pt to ambulate x 180 ft @ min supervision to increase tolerance ROM/Strength: Pt to be able to perform STS x 8 times in 30 secs. Master Certified Rv Technician Goals Days: 20 Gait: Pt to ambulate 250 ft independently to increase tolerance Balance: Pt to improve standing balance to G+ to reduce risk falls ROM/Strength: Pt to improve B LE mm strength 2-3 mm increments for stability - OT GOALS Fpc Goals Days: 20 Mobility for ADL's: Pt will improve toilet t/f independently with AE as needed Safety Awareness: Pt will demonstrate G safety awareness to decrease fall risk Dressing: Pt will perform UB/LB dressing independently with AE as needed. Bathing: Pt will improve bathing skills to independent level Grooming: Pt will improve grooming skills to independent level Upper Ext. Strength/Use: Pt will increase BUE strength to 5/5 to increase ADL,t/f and mobility Other: Pt will imporve F.A.T. to G to increase efficiency with ADL Short Term Goals Days: 10 Mobility for ADL's: Pt will improve toilet t/f w/supv A with AE as needed Safety Awareness: Pt will demonstrate F safety awareness to decrease fall risk Dressing: Pt will perform UB/LB dressing w/supv A with AE as needed. Bathing: Pt will improve bathing skills to w/supv A Grooming: Pt will improve grooming skills to w/supv A Upper Ext. Strength/Use: Pt will increase BUE strength to 4/5 to increase ADL,t/f and mobility Other: Pt will imporve F.A.T. to G- to increase efficiency with ADL - PATIENT GOALS Goals Discussed with Patient/Family: Yes Rehabilitation Potential: Good If yes, explain: SOB - PLAN Suggested Treatment Plan: Bed Mobility Training, Therapeutic Activity, Gait Training, Neuro Re-education, Therapeutic Ex with HEP, Home Management, Patient Education, Family Education - FREQUENCY AND DURATION PT: 6x Expected Continuation of Care at Discharge: Determined on Progress
--- NOTE | 2019-08-21 18:59 | DR.UPDATE ---
H&P Update History and Physical Update: History and Physical reviewed and patient examined. Changes noted: Yes with the following: HAS BEEN RECEIVING TREATMENT FOR SEVERE COPD AND EMPHYSEMA. SHE WAS CHANGED TO SWINGBED STATUS TODAY FOR AN EXTENDED COURSE OF IV ANTIBIOTICS, RESPIRATORY TREATMENTS, AND FOR PHYSICAL THERAPY AND REHAB DUE TO GENERALIZED WEAKNESS AND A DECLINE IN GAIT. DURING HER SWINGBED VISIT, WE WILL CONTINUE FORTAZ 1G IV TID, LEVAQUIN 750MG IV DAILY, AND HER HOME MEDICATIONS. PHYSICAL THERAPY WILL WORK WITH PATIENT MULTIPLE TIMES A DAY AND SHE WILL ALSO RECEIVE PULMONARY THERAPIES. OTHERWISE, WE PLAN TO MONITOR LABS AND WILL MAKE FURTHER ORDERS BASED ON HER IMPROVEMENT AND CONDITION. Prescription drug monitoring program results: PDMP reviewed and no concerns identified H&P Reviewed: Yes Patient was examined?: Yes
[2019-08-21] MEDS: PULMICORT NEB TX 0.5 MG NEB SCH (20:13)
[2019-08-21] MEDS ORDERED: PULMICORT NEB TX 0.5 MG NEB SCH (21:00)
[2019-08-21] MEDS: ZOCOR TAB 20 MG PO SCH (21:23)
[2019-08-21] MEDS: NORVASC TAB 5 MG PO SCH (21:24)
[2019-08-21] MEDS: MUCINEX EXPECTORANT PO SCH (21:24)
[2019-08-21] MEDS: THEO-DUR TAB 200 MG PO SCH (21:24)
[2019-08-21] MEDS: ATIVAN TAB 0.5 MG PO PRN (21:24)
[2019-08-21] MEDS: LOPRESSOR TAB 25 MG PO SCH (21:24)
[2019-08-22] MEDS: PROVENTIL NEB TX 0.083% 2.5MG/ 3ML NEB PRN ×3 (05:20→12:00)
[2019-08-22] MEDS: FORTAZ or TAZICEF VIAL INJ 1 G in NS 100 ML IV + SPIKE MINIBAG* 100 ML IV SCH ×3 (05:45→21:28)
[2019-08-22] MEDS: ATIVAN TAB 0.5 MG PO PRN ×2 (08:28→18:37)
[2019-08-22] MEDS: TAB-A-VITE PO SCH (08:28)
[2019-08-22] MEDS: LEVAQUIN PREMIX IV 750 MG 750 MG/150 ML BAG IV SCH (08:28)
[2019-08-22] MEDS: PULMICORT NEB TX 0.5 MG NEB SCH ×2 (08:28→19:59)
[2019-08-22] MEDS: LOPRESSOR TAB 25 MG PO SCH ×2 (08:29→20:20)
[2019-08-22] MEDS: OSCAL+D or CALTRATE+D PO SCH (08:30)
[2019-08-22] MEDS: THEO-DUR TAB 200 MG PO SCH ×2 (08:30→20:20)
[2019-08-22] MEDS: FLONASE NASAL SPRAY ENOSTRIL SCH ×2 (08:31→08:59)
[2019-08-22] MEDS: MUCINEX EXPECTORANT PO SCH ×2 (08:31→20:28)
[2019-08-22] MEDS: LOVENOX INJ 40 MG SYR SC SCH (08:42)
[2019-08-22] MEDS: ZOCOR TAB 20 MG PO SCH (20:19)
[2019-08-22] MEDS: NORVASC TAB 5 MG PO SCH (20:20)
[2019-08-23] MEDS: FORTAZ or TAZICEF VIAL INJ 1 G in NS 100 ML IV + SPIKE MINIBAG* 100 ML IV SCH ×3 (05:07→21:29)
[2019-08-23] MEDS: PULMICORT NEB TX 0.5 MG NEB SCH ×2 (08:00→20:25)
[2019-08-23] MEDS: PROVENTIL NEB TX 0.083% 2.5MG/ 3ML NEB PRN ×2 (08:00→17:31)
[2019-08-23] MEDS: LOPRESSOR TAB 25 MG PO SCH ×2 (08:33→21:29)
[2019-08-23] MEDS: TAB-A-VITE PO SCH (08:33)
[2019-08-23] MEDS: THEO-DUR TAB 200 MG PO SCH ×2 (08:33→21:30)
[2019-08-23] MEDS: LOVENOX INJ 40 MG SYR SC SCH (08:33)
[2019-08-23] MEDS: MUCINEX EXPECTORANT PO SCH ×2 (08:33→21:30)
[2019-08-23] MEDS: OSCAL+D or CALTRATE+D PO SCH (08:33)
[2019-08-23] MEDS: ATIVAN TAB 0.5 MG PO PRN ×2 (08:33→21:34)
[2019-08-23] MEDS: LEVAQUIN PREMIX IV 750 MG 750 MG/150 ML BAG IV SCH (08:34)
[2019-08-23] MEDS ORDERED: ZOFRAN INJ 4 MG VIAL ONE (13:56)
[2019-08-23] MEDS: ZOFRAN INJ 4 MG VIAL IVP PRN (13:59)
[2019-08-23] MEDS: NORVASC TAB 5 MG PO SCH (21:29)
[2019-08-23] MEDS: NS 500 ML IV 500 ML IV PRN (21:29)
[2019-08-23] MEDS: ZOCOR TAB 20 MG PO SCH (21:29)
[2019-08-24] MEDS: FORTAZ or TAZICEF VIAL INJ 1 G in NS 100 ML IV + SPIKE MINIBAG* 100 ML IV SCH ×3 (05:05→21:19)
[2019-08-24] MEDS: PROVENTIL NEB TX 0.083% 2.5MG/ 3ML NEB PRN ×4 (06:05→16:52)
[2019-08-24 07:17] LABS: BASOPHILS % (AUTO) 0.4 % (0.2-1.0); EOSINOPHILS # (AUTO) 0.5 x10^3/uL (0.0-0.2); EOSINOPHILS % (AUTO) 6.9 % (0.9-2.9); HEMATOCRIT 35.2 % (36.0-47.0); HEMOGLOBIN 11.5 g/dL (12.0-16.0); LYMPHOCYTES # (AUTO) 1.2 X10^3/uL (1.3-2.9); MEAN CORPUSCULAR HEMOGLOBIN 29.8 pg (27.0-34.0); MEAN CORPUSCULAR HGB CONC 32.8 g/dL (33.0-35.0); MEAN CORPUSCULAR VOLUME 90.8 fL (80.0-100.0); MEAN PLATELET VOLUME 8.5 fL (7.4-11.0); MONOCYTES # (AUTO) 1.2 x10^3/uL (0.3-0.8); MONOCYTES % (AUTO) 16.2 % (0.0-13.0); NEUTROPHILS # (AUTO) 4.4 x10^3/uL (2.2-4.8); NEUTROPHILS % (AUTO) 60.5 % (42.0-75.0); PLATELET COUNT 270 X10^3/uL (150.0-450.0); RED BLOOD COUNT 3.88 X10^6/uL (3.5-5.4); RED CELL DISTRIBUTION WIDTH 13.9 % (11.6-16.5); WHITE BLOOD COUNT 7.3 X10^3/uL (3.6-10.0)
[2019-08-24 07:31] LABS: ALANINE AMINOTRANSFERASE 56 Units/L (12-78); ALBUMIN 3.1 g/dL (3.4-5.0); ALKALINE PHOSPHATASE 46 Units/L (46-116); ASPARTATE AMINO TRANSFERASE 34 Units/L (15-37); BLOOD UREA NITROGEN 5 mg/dL (7-18); CALCIUM 8.8 mg/dL (8.5-10.1); CARBON DIOXIDE 39.8 mmol/L (21-32); CHLORIDE 94 mmol/L (98-107); COR CA(FOR HYPOALB) 9.5 mg/dL (8.5-10.1); CREATININE 0.47 mg/dL (0.55-1.02); SODIUM 135 mmol/L (136-145); TOTAL PROTEIN 6.5 g/dL (6.4-8.2); eGFR NON BLACK RACES > 60 (>60)
[2019-08-24] MEDS: LEVAQUIN PREMIX IV 750 MG 750 MG/150 ML BAG IV SCH (08:36)
[2019-08-24] MEDS: MUCINEX EXPECTORANT PO SCH ×2 (08:37→21:20)
[2019-08-24] MEDS: THEO-DUR TAB 200 MG PO SCH ×2 (08:37→21:20)
[2019-08-24] MEDS: LOPRESSOR TAB 25 MG PO SCH ×2 (08:38→21:20)
[2019-08-24] MEDS: TAB-A-VITE PO SCH (08:38)
[2019-08-24] MEDS: LOVENOX INJ 40 MG SYR SC SCH (08:39)
[2019-08-24] MEDS: OSCAL+D or CALTRATE+D PO SCH (08:39)
[2019-08-24] MEDS: PULMICORT NEB TX 0.5 MG NEB SCH ×2 (09:05→20:08)
[2019-08-24] MEDS: ATIVAN TAB 0.5 MG PO PRN ×2 (10:26→21:20)
[2019-08-24] MEDS: K-DUR TAB 20 MEQ PO PRN (11:29)
[2019-08-24] MEDS ORDERED: MILK OF MAGNESIA PO SCH (21:00)
[2019-08-24] MEDS ORDERED: COLACE CAP 100 MG PO SCH (21:00)
[2019-08-24] MEDS: ZOCOR TAB 20 MG PO SCH (21:19)
[2019-08-24] MEDS: NORVASC TAB 5 MG PO SCH (21:20)
[2019-08-25] MEDS: FORTAZ or TAZICEF VIAL INJ 1 G in NS 100 ML IV + SPIKE MINIBAG* 100 ML IV SCH ×3 (05:05→21:00)
[2019-08-25] MEDS: PROVENTIL NEB TX 0.083% 2.5MG/ 3ML NEB PRN ×4 (05:33→20:15)
[2019-08-25] MEDS: PULMICORT NEB TX 0.5 MG NEB SCH ×2 (09:11→20:15)
[2019-08-25] MEDS: ATIVAN TAB 0.5 MG PO PRN ×2 (09:11→20:27)
[2019-08-25] MEDS: LOPRESSOR TAB 25 MG PO SCH ×2 (09:12→20:27)
[2019-08-25] MEDS: MUCINEX EXPECTORANT PO SCH ×2 (09:12→20:27)
[2019-08-25] MEDS: TAB-A-VITE PO SCH (09:13)
[2019-08-25] MEDS: THEO-DUR TAB 200 MG PO SCH ×2 (09:14→20:28)
[2019-08-25] MEDS: OSCAL+D or CALTRATE+D PO SCH (09:14)
[2019-08-25] MEDS: LOVENOX INJ 40 MG SYR SC SCH (09:15)
[2019-08-25] MEDS: LEVAQUIN PREMIX IV 750 MG 750 MG/150 ML BAG IV SCH (09:15)
[2019-08-25] MEDS: ZOCOR TAB 20 MG PO SCH (20:27)
[2019-08-25] MEDS: NORVASC TAB 5 MG PO SCH (20:27)
[2019-08-26] MEDS: PROVENTIL NEB TX 0.083% 2.5MG/ 3ML NEB PRN ×4 (04:59→18:45)
[2019-08-26] MEDS: FORTAZ or TAZICEF VIAL INJ 1 G in NS 100 ML IV + SPIKE MINIBAG* 100 ML IV SCH ×3 (05:23→22:03)
[2019-08-26] MEDS: LOVENOX INJ 40 MG SYR SC SCH (08:47)
[2019-08-26] MEDS: LEVAQUIN PREMIX IV 750 MG 750 MG/150 ML BAG IV SCH (08:47)
[2019-08-26] MEDS: MUCINEX EXPECTORANT PO SCH ×2 (08:48→20:13)
[2019-08-26] MEDS: ATIVAN TAB 0.5 MG PO PRN ×2 (08:48→20:14)
[2019-08-26] MEDS: LOPRESSOR TAB 25 MG PO SCH ×2 (08:48→20:14)
[2019-08-26] MEDS: K-DUR TAB 20 MEQ PO PRN (08:48)
[2019-08-26] MEDS: OSCAL+D or CALTRATE+D PO SCH (08:48)
[2019-08-26] MEDS: THEO-DUR TAB 200 MG PO SCH ×2 (08:49→20:14)
[2019-08-26] MEDS: TAB-A-VITE PO SCH (08:49)
[2019-08-26] MEDS: PULMICORT NEB TX 0.5 MG NEB SCH ×2 (08:55→20:45)
[2019-08-26] MEDS: ZOCOR TAB 20 MG PO SCH (20:14)
[2019-08-26] MEDS: NORVASC TAB 5 MG PO SCH (20:14)
[2019-08-27] MEDS: PROVENTIL NEB TX 0.083% 2.5MG/ 3ML NEB PRN ×5 (00:45→20:00)
[2019-08-27] MEDS: FORTAZ or TAZICEF VIAL INJ 1 G in NS 100 ML IV + SPIKE MINIBAG* 100 ML IV SCH (05:41)
[2019-08-27 06:12] LABS: BASOPHILS % (AUTO) 0.6 % (0.2-1.0); EOSINOPHILS # (AUTO) 0.4 x10^3/uL (0.0-0.2); EOSINOPHILS % (AUTO) 5.3 % (0.9-2.9); HEMATOCRIT 33.4 % (36.0-47.0); HEMOGLOBIN 10.9 g/dL (12.0-16.0); LYMPHOCYTES # (AUTO) 1.2 X10^3/uL (1.3-2.9); MEAN CORPUSCULAR HEMOGLOBIN 29.7 pg (27.0-34.0); MEAN CORPUSCULAR HGB CONC 32.7 g/dL (33.0-35.0); MEAN CORPUSCULAR VOLUME 90.7 fL (80.0-100.0); MEAN PLATELET VOLUME 8.3 fL (7.4-11.0); MONOCYTES # (AUTO) 1.4 x10^3/uL (0.3-0.8); MONOCYTES % (AUTO) 19.5 % (0.0-13.0); NEUTROPHILS # (AUTO) 4.2 x10^3/uL (2.2-4.8); NEUTROPHILS % (AUTO) 57.6 % (42.0-75.0); PLATELET COUNT 289 X10^3/uL (150.0-450.0); RED BLOOD COUNT 3.68 X10^6/uL (3.5-5.4); RED CELL DISTRIBUTION WIDTH 13.9 % (11.6-16.5); WHITE BLOOD COUNT 7.2 X10^3/uL (3.6-10.0)
[2019-08-27 06:30] LABS: ALANINE AMINOTRANSFERASE 53 Units/L (12-78); ALBUMIN 2.9 g/dL (3.4-5.0); ALKALINE PHOSPHATASE 42 Units/L (46-116); ASPARTATE AMINO TRANSFERASE 26 Units/L (15-37); BLOOD UREA NITROGEN 6 mg/dL (7-18); CALCIUM 9.2 mg/dL (8.5-10.1); CARBON DIOXIDE 39.3 mmol/L (21-32); CHLORIDE 98 mmol/L (98-107); COR CA(FOR HYPOALB) 10.1 mg/dL (8.5-10.1); CREATININE 0.45 mg/dL (0.55-1.02); SODIUM 137 mmol/L (136-145); TOTAL PROTEIN 6.2 g/dL (6.4-8.2); eGFR NON BLACK RACES > 60 (>60)
[2019-08-27] MEDS: LOVENOX INJ 40 MG SYR SC SCH (08:15)
[2019-08-27] MEDS: TAB-A-VITE PO SCH (08:16)
[2019-08-27] MEDS: OSCAL+D or CALTRATE+D PO SCH (08:16)
[2019-08-27] MEDS: LOPRESSOR TAB 25 MG PO SCH ×2 (08:16→21:18)
[2019-08-27] MEDS: ATIVAN TAB 0.5 MG PO PRN ×2 (08:17→21:05)
[2019-08-27] MEDS: MUCINEX EXPECTORANT PO SCH ×2 (08:17→21:17)
[2019-08-27] MEDS: THEO-DUR TAB 200 MG PO SCH ×2 (08:17→21:19)
[2019-08-27] MEDS: LEVAQUIN PREMIX IV 750 MG 750 MG/150 ML BAG IV SCH (08:18)
[2019-08-27] MEDS: PULMICORT NEB TX 0.5 MG NEB SCH ×2 (08:29→20:00)
[2019-08-27] MEDS: NORVASC TAB 5 MG PO SCH (21:19)
[2019-08-27] MEDS: ZOCOR TAB 20 MG PO SCH (21:19)
[2019-08-28] MEDS: PROVENTIL NEB TX 0.083% 2.5MG/ 3ML NEB PRN ×5 (00:50→20:23)
[2019-08-28] MEDS: PULMICORT NEB TX 0.5 MG NEB SCH ×2 (09:10→20:23)
[2019-08-28] MEDS: THEO-DUR TAB 200 MG PO SCH ×2 (10:00→20:15)
[2019-08-28] MEDS: LEVAQUIN PREMIX IV 750 MG 750 MG/150 ML BAG IV SCH (10:00)
[2019-08-28] MEDS: TAB-A-VITE PO SCH (10:01)
[2019-08-28] MEDS: ATIVAN TAB 0.5 MG PO PRN ×2 (10:01→20:15)
[2019-08-28] MEDS: LOPRESSOR TAB 25 MG PO SCH ×2 (10:01→20:15)
[2019-08-28] MEDS: MUCINEX EXPECTORANT PO SCH ×2 (10:02→20:15)
[2019-08-28] MEDS: LOVENOX INJ 40 MG SYR SC SCH (10:02)
[2019-08-28] MEDS: OSCAL+D or CALTRATE+D PO SCH (10:02)
[2019-08-28] MEDS: ZOCOR TAB 20 MG PO SCH (20:15)
[2019-08-28] MEDS: NORVASC TAB 5 MG PO SCH (20:15)
[2019-08-29] MEDS: PROVENTIL NEB TX 0.083% 2.5MG/ 3ML NEB PRN ×4 (04:15→17:13)
[2019-08-29] MEDS: PULMICORT NEB TX 0.5 MG NEB SCH ×2 (08:31→20:16)
[2019-08-29] MEDS: THEO-DUR TAB 200 MG PO SCH ×2 (10:16→20:22)
[2019-08-29] MEDS: LOPRESSOR TAB 25 MG PO SCH ×2 (10:16→20:23)
[2019-08-29] MEDS: LEVAQUIN PREMIX IV 750 MG 750 MG/150 ML BAG IV SCH (10:16)
[2019-08-29] MEDS: TAB-A-VITE PO SCH (10:17)
[2019-08-29] MEDS: LOVENOX INJ 40 MG SYR SC SCH (10:17)
[2019-08-29] MEDS: ATIVAN TAB 0.5 MG PO PRN ×2 (10:17→20:23)
[2019-08-29] MEDS: MUCINEX EXPECTORANT PO SCH ×2 (10:17→20:22)
[2019-08-29] MEDS: OSCAL+D or CALTRATE+D PO SCH (10:18)
--- NOTE | 2019-08-29 10:55 | PCM.PROG ---
Progress Note - Progress Note for Day of Date of Exam: 08/27/19 - Subjective Subjective: IS CURRENTLY SWINGBED STATUS FOR PHYSICAL THERAPY/OCCUPATIONAL THERAPY DUE TO GENERALIZED WEAKNESS AND A DECLINE IN GAIT AND ADLs. SHE IS ALSO RECEIVING TREATMENT FOR COPD EXACERBATION. TODAY, SHE IS ALERT AND ORIENTED, SITTING UP IN BED ON MORNING ROUNDS. SHE CONTINUES WITH COUGH AND SHORTNESS OF BREATH TODAY, BUT REPORTS SLIGHT IMPROVEMENT SINCE ADMISSION. SHE ALSO REPORTS WEAKNESS. ON EXAMINATION, SHE IS TACHYCARDIC. BILATERAL LUNGS ARE NOTED WITH SCATTERED WHEEZING THROUGHOUT. ABDOMEN IS ROUND, SOFT, AND NON-TENDER WITH NORMAL BOWEL SOUNDS IN ALL QUADRANTS. HER VITALS THIS MORNING ARE: 97.9-112-22-97%NC-130/58. LABS WERE OBTAINED. ABNORMAL LAB VALUES INCLUDE THE FOLLOWING: HGB 10.9, HCT 33.4, CARBON DIOXIDE 39.3, BUN 6, CREATININE 0.45, GLUCOSE 110, ALK PHOS 42, TOTAL PROTEIN 6.2, ALBUMIN 2.9. URINE AND SPUTUM CULTURES ARE PENDING. A CHEST XRAY WAS OBTAINED AND REVEALED: NO CHANGE SEVERE COPD. SHE IS CURRENTLY RECEIVING: IV LEVAQUIN, ROBERT-DUR 200MG PO BID, NEB TX, HER REGULAR HOME MEDICATIONS, AND THE POTASSIUM AND MAGNESIUM PROTOCOLS. WE WILL CONTINUE WITH CURRENT PLAN OF CARE TODAY. OTHERWISE, WE WILL FOLLOW UP WITH AM LABS AND CONTINUE TO MONITOR. - Past Medical Family Social History Past Med/Fam/Surg Hx: No changes since H&P Allergies: Allergies acetaminophen Allergy (Verified 08/25/19 21:56) sulfamethoxazole [From Bactrim] Allergy (Verified 04/27/18 11:47) trimethoprim [From Bactrim] Allergy (Verified 04/27/18 11:47) - Review of Systems ROS: No change since H&P - Vital Signs and I&O's Vital Signs: Temperature 98.1 F Pulse Rate [Right Radial] 116 Pulse Rate 125 Respiratory Rate 20 Blood Pressure [Left Arm] 130/58 Blood Pressure [Right Arm] 140/65 O2 Sat by Pulse Oximetry 98 Intake and Output: Intake & Output 08/26/19 08/27/19 08/28/19 08/29/19 11:59 11:59 11:59 11:59 Intake Total 1610 / 1610 1800 / 1800 1530 / 1530 1830 / 1830 Output Total 400 / 400 Balance 1210 / 1210 1800 / 1800 1530 / 1530 1830 / 1830 - Physical Exam Oriented: Normal Eyes: Normal Ear: Normal Nose: Normal Throat: Normal Respiratory: Generalized, Diminished, Wheezes Cardiovascular: Tachycardia : Normal Auscultation: Bowel Sounds: Normal Palpation: Normal Tenderness: Normal Skin: Normal Musculoskeletal: Normal Psychiatric: Normal Mood Description: Calm Affect: Normal Speech Pattern: Clear, Appropriate - Laboratory and Diagnostics Result Diagrams: 08/27/19 05:25 08/27/19 05:25 Labs: Laboratory WBC 7.2 X10^3/uL (3.6-10.0) 08/27/19 05:25 RBC 3.68 X10^6/uL (3.5-5.4) 08/27/19 05:25 Hgb 10.9 g/dL (12.0-16.0) L 08/27/19 05:25 Hct 33.4 % (36.0-47.0) L 08/27/19 05:25 MCV 90.7 fL (80.0-100.0) 08/27/19 05:25 MCH 29.7 pg (27.0-34.0) 08/27/19 05:25 MCHC 32.7 g/dL (33.0-35.0) L 08/27/19 05:25 RDW 13.9 % (11.6-16.5) 08/27/19 05:25 Plt Count 289 X10^3/uL (150.0-450.0) 08/27/19 05:25 MPV 8.3 fL (7.4-11.0) 08/27/19 05:25 Neut % (Auto) 57.6 % (42.0-75.0) 08/27/19 05:25 Lymph % (Auto) 17.0 % (21.0-51.0) L 08/27/19 05:25 Ward % (Auto) 19.5 % (0.0-13.0) H 08/27/19 05:25 Eos % (Auto) 5.3 % (0.9-2.9) H 08/27/19 05:25 Baso % (Auto) 0.6 % (0.2-1.0) 08/27/19 05:25 Neut # (Auto) 4.2 x10^3/uL (2.2-4.8) 08/27/19 05:25 Lymph # (Auto) 1.2 X10^3/uL (1.3-2.9) L 08/27/19 05:25 Ward # (Auto) 1.4 x10^3/uL (0.3-0.8) H 08/27/19 05:25 Eos # (Auto) 0.4 x10^3/uL (0.0-0.2) H 08/27/19 05:25 Baso # (Auto) 0.0 X10^3/uL (0.0-0.1) 08/27/19 05:25 Absolute Nucleated RBC 0.0 /100WBC 08/27/19 05:25 Sodium 137 mmol/L (136-145) 08/27/19 05:25 Corrected Sodium TNP 08/27/19 05:25 Potassium 4.3 mmol/L (3.5-5.1) 08/27/19 05:25 Chloride 98 mmol/L (98-107) 08/27/19 05:25 Carbon Dioxide 39.3 mmol/L (21-32) H 08/27/19 05:25 BUN 6 mg/dL (7-18) L 08/27/19 05:25 Creatinine 0.45 mg/dL (0.55-1.02) L 08/27/19 05:25 Est GFR (MDRD) Af Amer > 60 (>60) 08/27/19 05:25 Est GFR (MDRD) Non-Af > 60 (>60) 08/27/19 05:25 Glucose 110 mg/dL (65-99) H 08/27/19 05:25 Calcium 9.2 mg/dL (8.5-10.1) 08/27/19 05:25 Corrected Calcium 10.1 mg/dL (8.5-10.1) 08/27/19 05:25 Magnesium 2.1 mg/dL (1.7-2.9) 08/24/19 05:35 Total Bilirubin 0.20 mg/dL (0.2-1.0) 08/27/19 05:25 AST 26 Units/L (15-37) 08/27/19 05:25 ALT 53 Units/L (12-78) 08/27/19 05:25 Alkaline Phosphatase 42 Units/L (46-116) L 08/27/19 05:25 Total Protein 6.2 g/dL (6.4-8.2) L 08/27/19 05:25 Albumin 2.9 g/dL (3.4-5.0) L 08/27/19 05:25 Globulin 3.3 g/dL (2.5-4.5) 08/27/19 05:25 Albumin/Globulin Ratio 0.9 Ratio (1.1-2.1) L 08/27/19 05:25 Vitamin B12 629 pg/mL (193-986) 08/26/19 10:43 Folate > 20.0 ng/mL (>8.6) 08/26/19 10:43 - Plan (1) COPD exacerbation Status: Acute Plan: CONTINUE IV LEVAQUIN, ROBERT-DUR, RESPIRATORY TX, HOME MEDICATIONS, CONTINUE TO [facility] (2) Acute bronchitis Status: Acute Qualifiers: Bronchitis organism: unspecified organism (3) Generalized weakness Status: Acute Plan: CONTINUE PHYSICAL/OCCUPATIONAL THERAPY
[2019-08-29] MEDS: NORVASC TAB 5 MG PO SCH (20:23)
[2019-08-29] MEDS: ZOCOR TAB 20 MG PO SCH (20:23)
[2019-08-30] MEDS: PROVENTIL NEB TX 0.083% 2.5MG/ 3ML NEB PRN ×5 (00:18→20:30)
[2019-08-30 06:44] LABS: ALANINE AMINOTRANSFERASE 46 Units/L (12-78); ALBUMIN 3.2 g/dL (3.4-5.0); ALKALINE PHOSPHATASE 47 Units/L (46-116); ASPARTATE AMINO TRANSFERASE 25 Units/L (15-37); BLOOD UREA NITROGEN 5 mg/dL (7-18); CALCIUM 9.4 mg/dL (8.5-10.1); CHLORIDE 94 mmol/L (98-107); COR NA(FOR HYPERGLY) 136 mmol/L (136-145); CREATININE 0.53 mg/dL (0.55-1.02); SODIUM 136 mmol/L (136-145); TOTAL PROTEIN 6.9 g/dL (6.4-8.2); eGFR NON BLACK RACES > 60 (>60)
[2019-08-30 07:05] LABS: CARBON DIOXIDE 41.7 mmol/L (21-32)
[2019-08-30 07:16] LABS: BASOPHILS % (AUTO) 0.6 % (0.2-1.0); EOSINOPHILS # (AUTO) 0.3 x10^3/uL (0.0-0.2); EOSINOPHILS % (AUTO) 4.3 % (0.9-2.9); HEMATOCRIT 34.7 % (36.0-47.0); HEMOGLOBIN 11.4 g/dL (12.0-16.0); LYMPHOCYTES # (AUTO) 1.3 X10^3/uL (1.3-2.9); LYMPHOCYTES % (AUTO) 16.8 % (21.0-51.0); MEAN CORPUSCULAR HEMOGLOBIN 29.9 pg (27.0-34.0); MEAN CORPUSCULAR VOLUME 90.7 fL (80.0-100.0); MEAN PLATELET VOLUME 8.7 fL (7.4-11.0); MONOCYTES % (AUTO) 13.1 % (0.0-13.0); NEUTROPHILS # (AUTO) 5.2 x10^3/uL (2.2-4.8); NEUTROPHILS % (AUTO) 65.2 % (42.0-75.0); PLATELET COUNT 327 X10^3/uL (150.0-450.0); RED BLOOD COUNT 3.83 X10^6/uL (3.5-5.4); RED CELL DISTRIBUTION WIDTH 13.7 % (11.6-16.5)
[2019-08-30] MEDS: PULMICORT NEB TX 0.5 MG NEB SCH ×2 (08:35→20:30)
[2019-08-30] MEDS: LEVAQUIN PREMIX IV 750 MG 750 MG/150 ML BAG IV SCH (09:22)
[2019-08-30] MEDS: MUCINEX EXPECTORANT PO SCH ×2 (09:22→20:39)
[2019-08-30] MEDS: LOPRESSOR TAB 25 MG PO SCH ×2 (09:23→20:39)
[2019-08-30] MEDS: THEO-DUR TAB 200 MG PO SCH ×2 (09:23→20:39)
[2019-08-30] MEDS: TAB-A-VITE PO SCH (09:23)
[2019-08-30] MEDS: OSCAL+D or CALTRATE+D PO SCH (09:23)
[2019-08-30] MEDS: ATIVAN TAB 0.5 MG PO PRN ×2 (09:24→20:39)
[2019-08-30] MEDS: LOVENOX INJ 40 MG SYR SC SCH (09:24)
[2019-08-30] MEDS: ZOFRAN INJ 4 MG VIAL IVP PRN (13:27)
[2019-08-30] MEDS: NORVASC TAB 5 MG PO SCH (20:39)
[2019-08-30] MEDS: ZOCOR TAB 20 MG PO SCH (20:39)
[2019-08-31] MEDS: PROVENTIL NEB TX 0.083% 2.5MG/ 3ML NEB PRN ×6 (00:34→21:00)
[2019-08-31] MEDS: PULMICORT NEB TX 0.5 MG NEB SCH ×2 (08:28→21:00)
[2019-08-31] MEDS: LOVENOX INJ 40 MG SYR SC SCH (08:55)
[2019-08-31] MEDS: LEVAQUIN PREMIX IV 750 MG 750 MG/150 ML BAG IV SCH (08:55)
[2019-08-31] MEDS: THEO-DUR TAB 200 MG PO SCH ×2 (08:56→20:44)
[2019-08-31] MEDS: LOPRESSOR TAB 25 MG PO SCH ×2 (08:56→20:47)
[2019-08-31] MEDS: K-DUR TAB 20 MEQ PO PRN (08:57)
[2019-08-31] MEDS: TAB-A-VITE PO SCH (08:57)
[2019-08-31] MEDS: OSCAL+D or CALTRATE+D PO SCH (08:57)
[2019-08-31] MEDS: ATIVAN TAB 0.5 MG PO PRN ×2 (08:58→20:44)
[2019-08-31] MEDS: MUCINEX EXPECTORANT PO SCH ×2 (08:58→20:46)
[2019-08-31] MEDS: ZOFRAN INJ 4 MG VIAL IVP PRN (12:21)
[2019-08-31] MEDS: NORVASC TAB 5 MG PO SCH (20:44)
[2019-08-31] MEDS: NS 500 ML IV 500 ML IV PRN (20:47)
[2019-08-31] MEDS: ZOCOR TAB 20 MG PO SCH (20:47)
[2019-08-31] MEDS ORDERED: COLACE CAP 100 MG PO SCH (21:00)
[2019-09-01] MEDS: PROVENTIL NEB TX 0.083% 2.5MG/ 3ML NEB PRN ×3 (05:50→12:30)
[2019-09-01] MEDS: PULMICORT NEB TX 0.5 MG NEB SCH (08:32)
[2019-09-01] MEDS: LEVAQUIN PREMIX IV 750 MG 750 MG/150 ML BAG IV SCH (08:58)
[2019-09-01] MEDS: MUCINEX EXPECTORANT PO SCH (08:59)
[2019-09-01] MEDS: LOPRESSOR TAB 25 MG PO SCH (08:59)
[2019-09-01] MEDS: OSCAL+D or CALTRATE+D PO SCH (09:00)
[2019-09-01] MEDS: THEO-DUR TAB 200 MG PO SCH (09:00)
[2019-09-01] MEDS: TAB-A-VITE PO SCH (09:00)
[2019-09-01] MEDS: ATIVAN TAB 0.5 MG PO PRN (09:03)
[2019-09-01] MEDS: LOVENOX INJ 40 MG SYR SC SCH (09:04)
[2019-09-01 09:37] VITALS: BP 125/58
[2019-09-01] MEDS: ZOFRAN INJ 4 MG VIAL IVP PRN (11:32)
== END 2019-09-01 14:35 | disposition home health service (06) | DRG 192 ==
LOC: MED/SURG 10:30
PROVIDERS: ADMIT Internal Medicine; ATTEND Internal Medicine
DX: J44.1 Chronic obstructive pulmonary disease with (acute) exacerbation; R26.89 Other abnormalities of gait and mobility; R53.1 Weakness; I10 Essential (primary) hypertension; R06.02 Shortness of breath; R00.0 Tachycardia, unspecified; Z51.89 Encounter for other specified aftercare; J20.9 Acute bronchitis, unspecified
CPT/HCPCS: 36415; 80053; 82607; 82746; 83735; 85025; 92610; 94640; 97110; 97116; 97162; 97166; 97530; 97535; A4216; A4222; J0713; J1650; J1956; J2405; J7040; J7050; J7613; J7626